=== PATIENT | male | born 1955 | race Caucasian/White ===

== ENCOUNTER 2016-09-04 16:37 | Observation (INO) | payer SELFPAY ==
[~2016-09-04] VITALS: Ht 185.4 cm; Wt 81.5 kg
[2016-09-04 16:39] VITALS: BP 130/93; PULSE 85; RESP 18; TEMP 98.2; O2SAT 99
--- NOTE | 2016-09-04 16:45 | PD ---
Physical Exam Date Seen by Provider: Sep 04, 2016 Time Seen by Provider: 16:43 Narrative 61 y/o male with c/o lower back pain and weakness which has been progressive over the last year. Has been seen by Orthopedics a year ago and MRI was recommended then, but patient had no insurance, so he did not get it. This am fell trying to get up off [employer], and broke it. V/S Stable. Awaiting bed placement. Data Data Last Documented VS Vital Signs Date Time Temp Pulse Resp B/P Pulse Ox O2 Delivery O2 Flow Rate FiO2 09/04/16 16:39 98.2 85 18 130/93 99 MDM Medical Record Reviewed: Yes Supervised Visit with CARRIE: Yes Condition: Stable Fernando Johnston Sep 04, 2016 16:45
[2016-09-04] MEDS ORDERED: SODIUM CHLOR 0.9% 1000 ML INJ 1,000 ML IV SCH (17:11)
[2016-09-04] MEDS ORDERED: SODIUM CHLORIDE 0.9% FLUSH 10 ML FLUSH IV FLUSH PRN ×2 (17:15→20:45)
--- NOTE | 2016-09-04 17:30 | PD ---
HPI Chief Complaint: Back/ Neck Pain or Injury Time Seen by Provider: 17:30 Travel History International Travel<30 days: No Contact w/Intl Traveler<30days: No Traveled to known affect area: No History of Present Illness HPI 61-year-old male presents to the emergency department for evaluation of lower extremity weakness worsening for 1 year. The patient states that in April 2015 he fell while at work carrying a box onto his bottom and had lower back pain at that time but was not seen or evaluated. States that 2 months later in June 2015 he was pulled down a ramp by a large package cart at work and injured his lower back. States that he was seen at a hospital in [place] at the time of that injury and had CT scans of his lower spine that were unremarkable. States he was referred to a specialist because he was experiencing slight weakness in his right foot so he followed up and was told he needed an MRI and a "neuromuscular test" however then he lost his insurance and never had these tests performed. States that over the past year since he saw that specialist he has had progressive weakness in his lower extremities. States that he used a cane for several months, then had to use 2 canes for another 3 months and then the last 3 months he has been using a walker for ambulation. States that today he was completely unable to lift himself off of the toilet at home due to weakness in his legs which is why he is presenting to our emergency department today, states his significant other had to carry him here. States that he waited to come to the hospital because he has been uninsured and did not want to get a large medical bill but he recently became insured. He denies any numbness or tingling, saddles anesthesia, fever, chills, nausea, vomiting. States that when he has the urge to urinate or have a bowel movement he has to go to the bathroom quickly or he will have an accident but denies bladder incontinence. He has also had swelling in his lower legs worsening over the last year as well. PFSH Past Medical History Medical History: Denies Significant Hx Social History Alcohol Use: No Tobacco Use: No Substance Use: No Allergies-Medications (Allergen,Severity, Reaction): Coded Allergies: No Known Allergies (Unverified , 09/04/16) Review of Systems Except as stated in HPI: all other systems reviewed are Neg Physical Exam Narrative GENERAL: Well-nourished and well-developed pleasant male patient in no acute distress who is nontoxic appearing. SKIN: Warm and dry. HEAD: Normocephalic and atraumatic. EYES: No injection, drainage, or hyphema noted. PERRLA. EOMI. ENT: No nasal drainage noted. Oropharynx is clear. NECK: Supple and the trachea is midline. CARDIOVASCULAR: Regular rate and rhythm. RESPIRATORY: Breath sounds are equal bilaterally with no accessory muscle use, wheezing, rhonchi, or crackles. GASTROINTESTINAL: Abdomen is soft, non-tender, and nondistended. MUSCULOSKELETAL: Swelling of calves, ankles and feet bilaterally with pitting edema. No obvious deformities, cyanosis, or ecchymosis is present throughout the upper and lower extremities. DP pulses are 2+ bilaterally. Strength in the upper extremities is 5/5 and equal bilaterally. Patient's lower extremities are flaccid, he is able to plantar flex at the ankle momentarily with strength of 3/5 bilaterally and when holding his thighs up with his arms he can flex at the knees a very small amount with a strength of 3/5. BACK: Nontender without any obvious deformities, bony point tenderness, or crepitus noted throughout the thoracic and lumbar vertebrae. NEUROLOGICAL: Awake, alert, and oriented. Normal speech. Inability to ambulate due to lower extremity weakness. DTRs 2+ in elbows and wrists bilaterally. DTRs in knees and Achilles are 0 bilaterally. Cranial nerves are grossly intact. Data Data Last Documented VS Vital Signs Date Time Temp Pulse Resp B/P Pulse Ox O2 Delivery O2 Flow Rate FiO2 09/04/16 20:16 56 15 09/04/16 20:14 175/90 98 Room Air 09/04/16 16:39 98.2 Orders Complete Blood Count With Diff (09/04/16 17:11) Comprehensive Metabolic Panel (09/04/16 17:11) Prothrombin Time / Inr (Pt) (09/04/16 17:11) Act Partial Throm Time (Ptt) (09/04/16 17:11) Iv Access Insert/Monitor (09/04/16 17:11) Ecg Monitoring (09/04/16 17:11) Oximetry (09/04/16 17:11) Sodium Chlor 0.9% 1000 Ml Inj (Ns 1000 M (09/04/16 17:11) Sodium Chloride 0.9% Flush (Ns Flush) (09/04/16 17:15) Mri C Spine W&W/O Contrast (09/04/16 ) Mri T Spine W & W/O Contrast (09/04/16 ) Mri Brain W&W/O Contrast (09/04/16 ) Us Leg Venous Doppler Bilat (09/04/16 ) Mri L Spine W&W/O Contrast (09/04/16 ) Gadodiamide Pf Inj (Omniscan Pf Inj) (09/04/16 19:12) Admit Order (Ed Use Only) (09/04/16 20:28) Labs Laboratory Tests Test 09/04/16 15:30 White Blood Count 5.7 TH/MM3 Red Blood Count 4.76 MIL/MM3 Hemoglobin 14.8 GM/DL Hematocrit 44.3 % Mean Corpuscular Volume 93.0 FL Mean Corpuscular Hemoglobin 31.1 PG Mean Corpuscular Hemoglobin 33.5 % Concent Red Cell Distribution Width 13.3 % Platelet Count 163 TH/MM3 Mean Platelet Volume 9.1 FL Neutrophils (%) (Auto) 67.7 % Lymphocytes (%) (Auto) 19.6 % Monocytes (%) (Auto) 9.3 % Eosinophils (%) (Auto) 3.0 % Basophils (%) (Auto) 0.4 % Neutrophils # (Auto) 3.9 TH/MM3 Lymphocytes # (Auto) 1.1 TH/MM3 Monocytes # (Auto) 0.5 TH/MM3 Eosinophils # (Auto) 0.2 TH/MM3 Basophils # (Auto) 0.0 TH/MM3 CBC Comment DIFF FINAL Differential Comment Prothrombin Time 10.3 SEC Prothromb Time International 0.9 RATIO Ratio Activated Partial 24.7 SEC Thromboplast Time Sodium Level 139 MEQ/L Potassium Level 3.8 MEQ/L Chloride Level 105 MEQ/L Carbon Dioxide Level 26.0 MEQ/L Anion Gap 8 MEQ/L Blood Urea Nitrogen 12 MG/DL Creatinine 0.67 MG/DL Estimat Glomerular Filtration 121 ML/MIN Rate Random Glucose 102 MG/DL Calcium Level 8.8 MG/DL Total Bilirubin 0.6 MG/DL Aspartate Amino Transf 26 U/L (AST/SGOT) Alanine Aminotransferase 34 U/L (ALT/SGPT) Alkaline Phosphatase 76 U/L Total Protein 6.7 GM/DL Albumin 3.8 GM/DL [facility] Medical Decision Making Medical Screen Exam Complete: Yes Emergency Medical Condition: Yes Differential Diagnosis Spinal cord injury versus spinal cord stenosis versus cauda equina versus MS versus Guillain-Parson syndrome versus other Narrative Course 61-year-old male presents to the emergency department for evaluation of lower extremity weakness worsening over the last year. Patient is afebrile, vital signs are stable. On physical examination the patient has flaccid paralysis of the lower extremities with the exception of small amount of plantar flexion at the ankles and minimal flexion at the knees when holding his legs up with his arms. Reflexes are absent in the lower extremities. Sensation is intact. Pulses and capillary refill are within normal limits. IV access is obtained, labs have been drawn and sent. I discussed the case with my attending physician Dr. Philip who recommends doing an MRIs of the patient's brain, cervical spine, thoracic spine and lumbar spine. Ultrasounds of the lower extremities have an order to rule out DVT. Brain MRI shows slight small vessel ischemic changes without any evidence for acute hemorrhage or mass effect. MRI of the cervical spine shows slight neural foramina compromise left C4 to 5 and left C5 to 6 without any significant thecal sac stenosis. MRI of the thoracic spine shows slight asymmetrical bulging disc left T9 to T 10 slightly impinging the exiting nerve roots without any significant thecal sac stenosis. MRI of the lumbar spine shows degenerative changes and slight bulging disks as above without any significant thecal sac stenosis. Bilateral lower extremities are negative for DVT. The patient's imaging is essentially unremarkable for anything that would cause bilateral lower extremity weakness. There is no clear etiology for the patient' s lower extremity weakness. The patient will be kept under observation for neurology and likely psychiatry consult as well. I discussed the case with my attending physician Dr. Philip who is aware of the patients history, physical examination findings, and treatment plan. Physician Communication Physician Communication I spoke with Dr. Heller [facility] who agrees to admit the patient to his service under observation. Diagnosis Primary Impression: Bilateral leg weakness Additional Impression: Inability to walk Admitting Information Admitting Physician Requests: Observation Condition: Stable Alayna Heller Sep 04, 2016 17:30
--- NOTE | 2016-09-04 17:47 | PD ---
Data Data Last Documented VS Vital Signs Date Time Temp Pulse Resp B/P Pulse Ox O2 Delivery O2 Flow Rate FiO2 09/04/16 20:16 56 15 09/04/16 20:14 175/90 98 Room Air 09/04/16 16:39 98.2 Orders Complete Blood Count With Diff (09/04/16 17:11) Comprehensive Metabolic Panel (09/04/16 17:11) Prothrombin Time / Inr (Pt) (09/04/16 17:11) Act Partial Throm Time (Ptt) (09/04/16 17:11) Iv Access Insert/Monitor (09/04/16 17:11) Ecg Monitoring (09/04/16 17:11) Oximetry (09/04/16 17:11) Sodium Chlor 0.9% 1000 Ml Inj (Ns 1000 M (09/04/16 17:11) Sodium Chloride 0.9% Flush (Ns Flush) (09/04/16 17:15) Mri C Spine W&W/O Contrast (09/04/16 ) Mri T Spine W & W/O Contrast (09/04/16 ) Mri Brain W&W/O Contrast (09/04/16 ) Us Leg Venous Doppler Bilat (09/04/16 ) Mri L Spine W&W/O Contrast (09/04/16 ) Gadodiamide Pf Inj (Omniscan Pf Inj) (09/04/16 19:12) Admit Order (Ed Use Only) (09/04/16 20:28) Labs Laboratory Tests Test 09/04/16 15:30 White Blood Count 5.7 TH/MM3 Red Blood Count 4.76 MIL/MM3 Hemoglobin 14.8 GM/DL Hematocrit 44.3 % Mean Corpuscular Volume 93.0 FL Mean Corpuscular Hemoglobin 31.1 PG Mean Corpuscular Hemoglobin 33.5 % Concent Red Cell Distribution Width 13.3 % Platelet Count 163 TH/MM3 Mean Platelet Volume 9.1 FL Neutrophils (%) (Auto) 67.7 % Lymphocytes (%) (Auto) 19.6 % Monocytes (%) (Auto) 9.3 % Eosinophils (%) (Auto) 3.0 % Basophils (%) (Auto) 0.4 % Neutrophils # (Auto) 3.9 TH/MM3 Lymphocytes # (Auto) 1.1 TH/MM3 Monocytes # (Auto) 0.5 TH/MM3 Eosinophils # (Auto) 0.2 TH/MM3 Basophils # (Auto) 0.0 TH/MM3 CBC Comment DIFF FINAL Differential Comment Prothrombin Time 10.3 SEC Prothromb Time International 0.9 RATIO Ratio Activated Partial 24.7 SEC Thromboplast Time Sodium Level 139 MEQ/L Potassium Level 3.8 MEQ/L Chloride Level 105 MEQ/L Carbon Dioxide Level 26.0 MEQ/L Anion Gap 8 MEQ/L Blood Urea Nitrogen 12 MG/DL Creatinine 0.67 MG/DL Estimat Glomerular Filtration 121 ML/MIN Rate Random Glucose 102 MG/DL Calcium Level 8.8 MG/DL Total Bilirubin 0.6 MG/DL Aspartate Amino Transf 26 U/L (AST/SGOT) Alanine Aminotransferase 34 U/L (ALT/SGPT) Alkaline Phosphatase 76 U/L Total Protein 6.7 GM/DL Albumin 3.8 GM/DL MDM Scripts No Active Prescriptions or Reported Meds Condition: Stable Srinivas Philip MD Sep 04, 2016 17:47
[2016-09-04 17:50] VITALS: BP 130/80; PULSE 80; RESP 16; O2SAT 98
[2016-09-04 17:51] LABS: AUTOMATED NEUTROPHIL # 3.9 TH/MM3 (1.8-7.7); BASOPHIL % 0.4 % (0.0-2.0); EOSINOPHIL # 0.2 TH/MM3 (0-0.4); HEMATOCRIT 44.3 % (39.0-51.0); HEMO FLAGS DIFF FINAL; LYMPH % 19.6 % (9.0-44.0); LYMPHOCYTE # 1.1 TH/MM3 (1.0-4.8); MEAN CORPUSCULAR HEMOGLOBIN 31.1 PG (27.0-34.0); MEAN CORPUSCULAR HGB CONC 33.5 % (32.0-36.0); MONO % 9.3 % (0.0-8.0); NEUT % 67.7 % (16.0-70.0); PLATELET COUNT 163 TH/MM3 (150-450); RED BLOOD COUNT 4.76 MIL/MM3 (4.50-5.90); RED CELL DISTRIBUTION WIDTH 13.3 % (11.6-17.2); WHITE BLOOD COUNT 5.7 TH/MM3 (4.0-11.0)
[2016-09-04 18:04] LABS: APTT (PATIENT) 24.7 SEC (24.3-30.1); INTERNATIONAL NORMALIZED RATIO 0.9 RATIO; PROTHROMBIN TIME - PATIENT 10.3 SEC (9.8-11.6)
[2016-09-04 18:28] LABS: ANION GAP 8 MEQ/L (5-15); AST (GOT) 26 U/L (15-37); BLOOD UREA NITROGEN 12 MG/DL (7-18); CHLORIDE 105 MEQ/L (98-107); GLOMERULAR FILTRATION RATE 121 ML/MIN (>89); POTASSIUM 3.8 MEQ/L (3.5-5.1); SODIUM (NA) 139 MEQ/L (136-145)
[2016-09-04 18:31] LABS: ALKALINE PHOSPHATASE 76 U/L (45-117); ALT (GPT) 34 U/L (12-78); TOTAL BILIRUBIN ADULT 0.6 MG/DL (0.2-1.0)
[2016-09-04] MEDS ORDERED: GADODIAMIDE PF 287 MG/ML 20 ML VIAL (for RAD MRI) IV ONE (19:12)
--- NOTE | 2016-09-04 19:28 | RADRPT ---
EXAM DATE/TIME: 09/04/2016 18:08 [facility] COMPARISON: No previous studies available for comparison. INDICATIONS : Inability to ambulate. CONTRAST: 20 cc Omniscan (gadodiamide) IV MEDICAL HISTORY : None. SURGICAL HISTORY : None. ENCOUNTER: Initial ACUITY: > 1 year PAIN SCORE: 0/10 LOCATION: Paraspinal TECHNIQUE: Multiplanar multisequence MRI of the thoracic spine was performed. FINDINGS: The marrow signal appears intact. No significant compression deformities are seen. No significant c ord compression is identified. The spinal cord appears intact. T1-T2: No appreciable compromise to the thecal sac, spinal cord, or the exiting nerve roots are seen. The neural foramina are grossly patent bilaterally. T2-T3: No appreciable compromise to the thecal sac, spinal cord, or the exiting nerve roots are seen. The neural foramina are grossly patent bilaterally. T3-T4: No appreciable compromise to the thecal sac, spinal cord, or the exiting nerve roots are seen. The neural foramina are grossly patent bilaterally. T4-T5: No appreciable compromise to the thecal sac, spinal cord, or the exiting nerve roots are seen. The neural foramina are grossly patent bilaterally. T5-T6: No appreciable compromise to the thecal sac, spinal cord, or the exiting nerve roots are seen. The neural foramina are grossly patent bilaterally. T6-T7: No appreciable compromise to the thecal sac, spinal cord, or the exiting nerve roots are seen. The neural foramina are grossly patent bilaterally. T7-T8: No appreciable compromise to the thecal sac, spinal cord, or the exiting nerve roots are seen. The neural foramina are grossly patent bilaterally. T8-T9: No appreciable compromise to the thecal sac, spinal cord, or the exiting nerve roots are seen. The neural foramina are grossly patent bilaterally. T9-T10: There is asymmetrical bulging disc towards the left with extension into the left neural fora men impinging the exiting nerve root to a slight degree. No significant thecal sac stenosis is seen. T10-T11: No appreciable compromise to the thecal sac, spinal cord, or the exiting nerve roots are se en. The neural foramina are grossly patent bilaterally. T11-T12: No appreciable compromise to the thecal sac, spinal cord, or the exiting nerve roots are se en. The neural foramina are grossly patent bilaterally. T12-L1: No appreciable compromise to the thecal sac, spinal cord, or the exiting nerve roots are s een. The neural foramina are grossly patent bilaterally. CONCLUSION: Slight asymmetrical buldging disc left T9-T10 slightly impinging the exiting nerve ro ots without any significant thecal sac stenosis. Uriel Brower MD on September 04, 2016 at 19:24 Board Certified Radiologist. This report was verified electronically.
--- NOTE | 2016-09-04 19:51 | RADRPT ---
EXAM DATE/TIME: 09/04/2016 18:08 [facility] COMPARISON: No previous studies available for comparison. INDICATIONS : Inability to ambulate. CONTRAST: 20 cc Omniscan (gadodiamide) IV MEDICAL HISTORY : None. SURGICAL HISTORY : None. ENCOUNTER: Initial ACUITY: > 1 year PAIN SCORE: 0/10 LOCATION: cranial TECHNIQUE: Multiplanar, multisequence MRI of the brain was performed both prior to and following the administrat ion of paramagnetic contrast. FINDINGS: There is no evidence for intracranial hemorrhage, mass effect, mass lesions, edema, or extra-axial fl uid collections. There are no signs of acute infarction for technique. The diffusion portion, and po stcontrast portion are unremarkable. Slight periventricular white matter changes are seen nonspecific mostly consistent with chronic small vessel ischemic changes. CONCLUSION: Slight small vessel ischemic changes without any evidence for acute hemorrhage or mass e ffect. K. Pan Brower MD on September 04, 2016 at 19:46 Board Certified Radiologist. This report was verified electronically.
--- NOTE | 2016-09-04 19:55 | RADRPT ---
EXAM DATE/TIME: 09/04/2016 18:08 [facility] COMPARISON: No previous studies available for comparison. INDICATIONS : Inability to ambulate. CONTRAST: 20 cc Omniscan (gadodiamide) IV MEDICAL HISTORY : None. SURGICAL HISTORY : None. ENCOUNTER: Initial ACUITY: > 1 year PAIN SCORE: 0/10 LOCATION: Paraspinal TECHNIQUE: Multiplanar, multisequence MRI examination of the cervical spine was performed. FINDINGS: POST-CONTRAST: No abnormal areas of enhancement are seen. C2-C3: There is no evidence for any significant compromise to the thecal sac, or the exiting nerve roots. N o appreciable thecal sac stenosis is seen. The neural foramina and lateral recess appear patent bila terally. C3-C4: There is no evidence for any significant compromise to the thecal sac, or the exiting nerve roots. N o appreciable thecal sac stenosis is seen. The neural foramina and lateral recess appear patent bila terally. C4-C5: Slight degenerative changes are seen within the disc space and facets. There is slight neural foramin a compromise on the left due to asymmetrical bulging disc and hypertrophic changes. There is effaceme nt of the anterior CSF space due to chronic hypertrophic changes, some degree of bulging disc with co mpromise to the anterior CSF space, however overall no significant thecal sac stenosis is seen. C5-C6: Slight degenerative changes are seen within the disc space and facets. Slight bulging disc and hypert rophic changes are seen with indentation on the thecal sac and no significant compromise to the theca l sac or the exiting nerve roots. C6-C7: Moderate degenerative changes are seen within the disc space and facets. There is slight neural linda betina compromise on the left due to asymmetrical bulging disc and hypertrophic changes. Slight bulging disc and hypertrophic changes are seen with indentation on the thecal sac and no significant compromi se to the thecal sac or the exiting nerve roots. C7-T1: There is no evidence for any significant compromise to the thecal sac, or the exiting nerve roots. N o appreciable thecal sac stenosis is seen. The neural foramina and lateral recess appear patent bila terally. CONCLUSION: Slight neural foramina compromise left C4-5 and left C5-6 without any significant thecal sac stenosis . Uriel Brower MD on September 04, 2016 at 19:49 Board Certified Radiologist. This report was verified electronically.
--- NOTE | 2016-09-04 19:59 | RADRPT ---
EXAM DATE/TIME: 09/04/2016 18:08 [facility] COMPARISON: No previous studies available for comparison. INDICATIONS : Inability to ambulate. CONTRAST: 20 cc Omniscan (gadodiamide) IV MEDICAL HISTORY : None. SURGICAL HISTORY : None. ENCOUNTER: Initial ACUITY: > 1 year PAIN SCORE: 0/10 LOCATION: Paraspinal TECHNIQUE: Multiplanar multisequence MRI of the lumbar spine was performed with and without contrast. FINDINGS: The most caudal appearing lumbar vertebra is numbered as L5. No significant compression deformities, spondylolysis or spondylolisthesis is seen. POST CONTRAST: No abnormal areas of contrast enhancement are seen. T12-L1: There is no evidence for any significant compromise to the thecal sac, or the exiting nerve roots. N o appreciable thecal sac stenosis is seen. The neural foramina and lateral recess appear patent bila terally. L1-L2: There is no evidence for any significant compromise to the thecal sac, or the exiting nerve roots. N o appreciable thecal sac stenosis is seen. The neural foramina and lateral recess appear patent bila terally. L2-L3: There is asymmetrical bulging disc towards the left with extension into the left neural foramen impin ging the exiting nerve root to a slight degree. No significant thecal sac stenosis is seen. L3-L4: There is asymmetrical bulging disc towards the left with extension into the left neural foramen impin ging the exiting nerve root to a slight degree. No significant thecal sac stenosis is seen. L4-L5: There is symmetrical bulging disc with extension into the bilateral neural foramen impinging the exit ing nerve roots to a slight degree. No significant thecal sac stenosis is seen. There are degenerati ve changes involving the inferior endplate of L4 with Schmorl node formation. L5-S1: There is no evidence for any significant compromise to the thecal sac, or the exiting nerve roots. N o appreciable thecal sac stenosis is seen. The neural foramina and lateral recess appear patent bila terally. CONCLUSION: Degenerative changes and slight bulging discs as above without any significant thecal sac stenosis. Uriel Brower MD on September 04, 2016 at 19:53 Board Certified Radiologist. This report was verified electronically.
[2016-09-04 20:14] VITALS: BP 175/90; PULSE 56; RESP 16; O2SAT 98
--- NOTE | 2016-09-04 20:22 | RADRPT ---
EXAM DATE/TIME: 09/04/2016 19:50 [facility] COMPARISON: No previous studies available for comparison. INDICATIONS : Bilateral leg swelling. MEDICAL HISTORY : Bilateral leg swelling. SURGICAL HISTORY : None. ENCOUNTER: Initial ACUITY: >1 year PAIN SCORE: 0/10 LOCATION: Bilateral leg. TECHNIQUE: Venous ultrasound of the left and right leg was performed from the inguinal ligament to the proximal calf. Real-time, color Doppler and spectral tracing, compression and augmentation techniques were us ed. FINDINGS: RIGHT LEG: There is normal compressibility of the deep venous system from the inguinal region to the proximal ca lf. No echogenic clot is seen in the lumen of the common femoral, femoral, popliteal, and posterior tibial veins. There is a normal response of the venous system to proximal and distal augmentation an d respiration. LEFT LEG: There is normal compressibility of the deep venous system from the inguinal region to the proximal ca lf. No echogenic clot is seen in the lumen of the common femoral, femoral, popliteal, and posterior tibial veins. There is a normal response of the venous system to proximal and distal augmentation an d respiration. CONCLUSION: Normal examination. Uriel Brower MD on September 04, 2016 at 20:20 Board Certified Radiologist. This report was verified electronically.
[2016-09-04] MEDS ORDERED: NALOXONE HCL 0.4 MG/ML AMP IV PRN (20:45)
[2016-09-04] MEDS ORDERED: ACETAMINOPHEN 325 MG TAB PO PRN (20:45)
[2016-09-04] MEDS ORDERED: ONDANSETRON HCL 4 MG/2 ML VIAL IVP PRN (20:45)
--- NOTE | 2016-09-04 21:18 | HHI.HP ---
[facility] Service [facility] Primary Care Physician No Primary Care Physician Admission Diagnosis Bilateral Lower Extremity Weakness, Inability to Ambulate Diagnoses: Chief Complaint: Progressive bilateral lower extremity weakness Travel History International Travel<30 Days: No Contact w/Intl Traveler <30 Da: No Traveled to Known Affected Are: No History of Present Illness This is a 61-year-old male patient who denies neck and medical history. Patient presents to the emergency department today after he fell backwards shortness it on a bedside commode. Patient reports progressive bilateral lower extremity weakness times one year. The patient states that in April 2015 he fell while at work carrying a box onto his bottom and had lower back pain at that time but was not seen or evaluated. States that 2 months later in June 2015 he was pulled down a ramp by a large package cart at work and injured his lower back. States that he was seen at a hospital in [place] at the time of that injury and had CT scans of his lower spine that were unremarkable. States he was referred to a specialist and was told he needed an MRI and a "neuromuscular test" however then he lost his insurance and never had these tests performed. States that over the past year he has had progressive weakness in his lower extremities. States that he used a cane for several months, then had to use 2 canes for another 3 months and then the last 3 months he has been using a walker for ambulation. States that today he was completely unable to lift himself off of the toilet at home due to weakness in his legs which is why he is presenting to our emergency department today, states his significant other had to carry him here. States that he waited to come to the hospital because he has been uninsured and did not want to get a large medical bill but he recently became insured. He denies any numbness or tingling, saddles anesthesia, fever, chills, nausea, vomiting. States that when he has the urge to urinate or have a bowel movement he has to go to the bathroom quickly or he will have an accident but denies bladder or stool incontinence. He has also had swelling in his lower legs for the last year as well. Review of Systems Except as stated in HPI: all other systems reviewed are Neg Past Family Social History Past Medical History Denies past medical history Past Surgical History Denies prior surgical interventions Reported Medications Denies daily home medications. Reports he will occasionally take over-the- counter ibuprofen Allergies: Coded Allergies: No Known Allergies (Unverified , 09/04/16) Active Ordered Medications Current Medications Medications (Trade) Dose Ordered Sig/Mane Route Start Time Stop Time Status Last Admin (NS Flush) 2 ml UNSCH PRN IV FLUSH 09/04/16 20:45 (NS Flush) 2 ml BID IV FLUSH 09/04/16 21:00 (Tylenol) 650 mg Q4H PRN PO 09/04/16 20:45 (Zofran Inj) 4 mg Q6H PRN IVP 09/04/16 20:45 (Lovenox Inj) 40 mg Q24H SQ 09/04/16 21:00 (Narcan Inj) 0.4 mg UNSCH PRN IV 09/04/16 20:45 Family History Mother at 71 believes is secondary to CVA Father at 73 unknown causes Social History Patient is currently not working he has not worked since June 2015 Rare EtOH use Denies tobacco use now or in the past Denies illicit drug use now or in the past Physical Exam Vital Signs Vital Signs Date Time Temp Pulse Resp B/P Pulse Ox O2 Delivery O2 Flow Rate FiO2 09/04/16 20:16 56 15 09/04/16 20:14 56 16 175/90 98 Room Air 09/04/16 17:50 80 16 130/80 98 Room Air 09/04/16 16:39 98.2 85 18 130/93 99 Physical Exam GENERAL: This is a well-nourished, well-developed patient, with bilateral lower extremity weakness muscle wasting and 3+ pitting edema SKIN: No rashes, ecchymoses or lesions. Cool and dry. HEAD: Atraumatic. Normocephalic. No temporal or scalp tenderness. EYES: Extraocular motions intact. No scleral icterus. No injection or drainage. CARDIOVASCULAR: Regular rate and rhythm without murmurs, gallops, or rubs. RESPIRATORY: Clear to auscultation. Breath sounds equal bilaterally. No wheezes , rales, or rhonchi. GASTROINTESTINAL: Abdomen soft, non-tender, nondistended. BACK: Nontender without any obvious deformities, bony point tenderness, or crepitus noted throughout the thoracic and lumbar vertebrae. MUSCULOSKELETAL: Bilateral lower extremity muscle wasting with 3+ bilateral lower extremity pitting edema No calf tenderness. Negative Homans sign bilaterally. Strength in the upper extremities is 5/5 and equal bilaterally. Patient's lower extremities are flaccid, he is able to plantar flex at the ankle momentarily with strength of 3/5 bilaterally NEUROLOGICAL: Awake and alert. Normal speech. Bilateral lower extremity weakness. Inability to ambulate due to lower extremity weakness. DTRs 2+ in elbows and wrists bilaterally. DTRs in knees and Achilles are 0 bilaterally. Cranial nerves are grossly intact. Laboratory Laboratory Tests Test 09/04/16 15:30 White Blood Count 5.7 Red Blood Count 4.76 Hemoglobin 14.8 Hematocrit 44.3 Mean Corpuscular Volume 93.0 Mean Corpuscular Hemoglobin 31.1 Mean Corpuscular Hemoglobin 33.5 Concent Red Cell Distribution Width 13.3 Platelet Count 163 Mean Platelet Volume 9.1 Neutrophils (%) (Auto) 67.7 Lymphocytes (%) (Auto) 19.6 Monocytes (%) (Auto) 9.3 Eosinophils (%) (Auto) 3.0 Basophils (%) (Auto) 0.4 Neutrophils # (Auto) 3.9 Lymphocytes # (Auto) 1.1 Monocytes # (Auto) 0.5 Eosinophils # (Auto) 0.2 Basophils # (Auto) 0.0 CBC Comment DIFF FINAL Differential Comment Prothrombin Time 10.3 Prothromb Time International 0.9 Ratio Activated Partial 24.7 Thromboplast Time Sodium Level 139 Potassium Level 3.8 Chloride Level 105 Carbon Dioxide Level 26.0 Anion Gap 8 Blood Urea Nitrogen 12 Creatinine 0.67 Estimat Glomerular Filtration 121 Rate Random Glucose 102 Calcium Level 8.8 Total Bilirubin 0.6 Aspartate Amino Transf 26 (AST/SGOT) Alanine Aminotransferase 34 (ALT/SGPT) Alkaline Phosphatase 76 Total Protein 6.7 Albumin 3.8 Result Diagram: 09/04/16 1530 09/04/16 1530 Imaging Last Impressions Thoracic Spine MRI 09/04/16 0000 Signed Impressions: Service Date/Time: Sunday, September 04, 2016 18:08 - CONCLUSION: Slight asymmetrical buldging disc left T9-T10 slightly impinging the exiting nerve roots without any significant thecal sac stenosis. Uriel Brower MD Lumbar Spine MRI 09/04/16 0000 Signed Impressions: Service Date/Time: Sunday, September 04, 2016 18:08 - CONCLUSION: Degenerative changes and slight bulging discs as above without any significant thecal sac stenosis. Uriel Brower MD Lower Extremity Ultrasound 09/04/16 0000 Signed Impressions: Service Date/Time: Sunday, September 04, 2016 19:50 - CONCLUSION: Normal examination. Uriel Brower MD Cervical Spine MRI 09/04/16 0000 Signed Impressions: Service Date/Time: Sunday, September 04, 2016 18:08 - CONCLUSION: Slight neural foramina compromise left C4-5 and left C5-6 without any significant thecal sac stenosis. Uriel Brower MD Brain MRI 09/04/16 0000 Signed Impressions: Service Date/Time: Sunday, September 04, 2016 18:08 - CONCLUSION: Slight small vessel ischemic changes without any evidence for acute hemorrhage or mass effect. Uriel Brower MD Assessment and Plan Problem List: (1) Inability to walk ICD Code: R26.2 Status: Acute (2) Bilateral leg weakness ICD Code: R29.898 Status: Acute Assessment and Plan This is a 61-year-old male patient who denies neck and medical history. Patient presents to the emergency department today after he fell backwards shortness it on a bedside commode. Patient reports progressive bilateral lower extremity weakness times one year. Progressive bilateral lower extremity weakness times one year Bilateral lower extremity edema Bilateral lower extremity muscle wasting Brain MRI shows slight small vessel ischemic changes without any evidence for acute hemorrhage or mass effect. MRI of the cervical spine shows slight neural foramina compromise left C4 to 5 and left C5 to 6 without any significant thecal sac stenosis. MRI of the thoracic spine shows slight asymmetrical bulging disc left T9 to T 10 slightly impinging the exiting nerve roots without any significant thecal sac stenosis. MRI of the lumbar spine shows degenerative changes and slight bulging disks as above without any significant thecal sac stenosis. Bilateral lower extremities are negative for DVT Consult neurology Consult PT and OT DVT prophylaxis with Lovenox Discussed plan of care with here provider, nursing patient and Dr. Heller This note was transcribed by [email or web address] [Nina Pelayo]. I, Dr. Juan Heller personally performed the history, physical exam, and medical decision making; and confirmed the accuracy of the information in the transcribed note. Authenticated by Dr. Juan Heller on 09/05/16 at 00:12. Su Pelayo Sep 04, 2016 21:18 Juan Heller MD September 05, 2016 00:13
[2016-09-04] MEDS: SODIUM CHLORIDE 0.9% FLUSH 10 ML FLUSH IV FLUSH SCH (21:39)
[2016-09-04] MEDS: ENOXAPARIN SODIUM 40 MG/0.4 ML SYRINGE SQ SCH (21:39)
[2016-09-04 22:37] VITALS: BP 147/78; PULSE 68; RESP 18; TEMP 98.4; O2SAT 97
[2016-09-05 00:34] VITALS: BP 189/95; PULSE 61; RESP 18; TEMP 98.8; O2SAT 97
[2016-09-05 04:46] VITALS: BP 131/75; PULSE 78; RESP 21; TEMP 98; O2SAT 99
[2016-09-05 07:29] VITALS: BP 139/96; PULSE 60; RESP 19; TEMP 97.9; O2SAT 98
[2016-09-05 08:41] LABS: AUTOMATED NEUTROPHIL # 1.7 TH/MM3 (1.8-7.7); BASOPHIL % 0.8 % (0.0-2.0); EOSINOPHIL # 0.2 TH/MM3 (0-0.4); EOSINOPHIL % 4.6 % (0.0-4.0); HEMATOCRIT 39.2 % (39.0-51.0); HEMO FLAGS DIFF FINAL; LYMPH % 30.4 % (9.0-44.0); MEAN CELL VOLUME 91.4 FL (80.0-100.0); MEAN CORPUSCULAR HEMOGLOBIN 32.3 PG (27.0-34.0); MEAN CORPUSCULAR HGB CONC 35.3 % (32.0-36.0); MONO % 11.2 % (0.0-8.0); PLATELET COUNT 137 TH/MM3 (150-450); RED BLOOD COUNT 4.28 MIL/MM3 (4.50-5.90); RED CELL DISTRIBUTION WIDTH 13.2 % (11.6-17.2); WHITE BLOOD COUNT 3.3 TH/MM3 (4.0-11.0)
[2016-09-05 08:58] LABS: BICARBONATE 25.8 MEQ/L (21.0-32.0); POTASSIUM 3.4 MEQ/L (3.5-5.1)
--- NOTE | 2016-09-05 11:09 | MB ---
cc: ELICEO YOUNG MD DATE OF CONSULTATION: 09/05/2016 REASON FOR CONSULTATION Bilateral lower extremity weakness of 1-1/2 years duration. HISTORY OF PRESENT ILLNESS Mr. Denny is a 61-year-old male with no significant past medical history who presents to the emergency department at [facility] after multiple falls and weakness of both lower extremities that started in April 2015. 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 At that time he was not seen or evaluated. Then two months later in June 2015 he was pulled down around by a large package cart at work and injured his lower back. He was seen in the hospital in [place] and imaging was unremarkable. Then he was referred to a neurologist and he was told that he needed an MRI and neurophysiologic tests but he had lost his insurance and never had these tests performed. The patient has been using a cane for several months. The patient states that both legs were weak from the beginning and he thinks that there was loss of muscle bulk and decrease in the tone of both legs over the last six months, but he emphasizes that the weakness has been there since the beginning. He denies any sphincter control disturbances, significant back pain, numbness or tingling sensation. REVIEW OF SYSTEMS A 12-point review of systems is negative except for what is stated in the HPI. PAST MEDICAL HISTORY Nonapplicable. PAST SURGICAL HISTORY Nonapplicable. MEDICATIONS He occasionally uses [id number] ibuprofen. ALLERGIES No known allergies. FAMILY HISTORY Mother at 71 due to a stroke. Father at 73 of unknown causes. SOCIAL HISTORY The patient rarely uses ethanol, denies tobacco use or illicit drug use. PHYSICAL EXAMINATION GENERAL: Awake, alert, pleasant, good historian, not in acute distress HEENT: Atraumatic, normocephalic. Intact hearing. Intact vision. HEART: Regular rate and rhythm. LUNGS: Clear to auscultation. No wheezes. ABDOMEN: Soft abdomen, nontender. EXTREMITIES: Bilateral ankle swelling. No cyanosis. No clubbing. BACK: No tenderness in the back. NEUROLOGIC: Awake, alert, oriented to time, person and place. Intact speech. Intact speech content. Cranial nerves II-XII are grossly intact. Upper extremities 5/5. No abnormal movement. Normal tone. Lower extremity hip flexion 4-/5 bilateral. Hip extension 4/5 bilateral. Knee extension 4-/5 right, 4/5 left. Bilateral foot drop. Plantar flexion 3/5 bilateral with swelling. Reflexes 2+ bilateral symmetrical in upper extremities, 2+ bilateral symmetrical in lower extremities. Plantars are bilaterally downgoing. Sensation is intact. No sensory level. Negative Willie sign. Negative abductor reflexes. Wasting of bilateral thigh muscles, abductors and vastus lateralis. Intact [id number]. Unable to perform [id number]. LABORATORY White blood cell count 5.7, MCV 93, platelet 163. INR 0.9. Sodium 139, potassium 3.8, anion gap 8, BUN 12, creatinine 0.67, calcium 8.8. LFTs normal. IMAGING - Brain MRI with slight small vessel ischemic changes without any evidence of acute hemorrhage or mass. - Cervical spine MRI with slight neural foramina compromise at left C4-5 and left C5-6 without any significant thecal sac stenosis. - Lumbar spine MRI with degenerative changes and slight bulging disc without any significant thecal stenosis. - Thoracic spine MRI with slight asymmetric bulging at left T9-T10 impinging on the existing nerve root without any significant thecal sac stenosis. - Lower extremity ultrasound: Normal examination. DIAGNOSTIC IMPRESSION 1. Bilateral lower extremity weakness. 2. Bilateral foot drop. 3. Multiple falls. Possible etiologic factors, inflammatory[demyelination],vascular [anterior spinal artery], infectious [syphilis,HTLV1,HIV, HSV 1, HSV2, HIV], or ? trauma. PLAN - Neuro-checks q.4 hourly. - Consider LP - CTA thoracic and lumbar spine w contrast - PT/ OT recommendations are appreciated. - DVT prophylaxis. - Fall precautions Thank you for the opportunity to participate in the care of your patient. MD GISSEL Barker/SELENA /9:56 AM /10:56 AM ARVIN
[2016-09-05 11:48] VITALS: BP 177/92; PULSE 65; RESP 20; TEMP 98.2; O2SAT 97
--- NOTE | 2016-09-05 12:50 | HHI.PR ---
Subjective Remarks Feeling at baseline, which is to say he is not improved. Further work up planned. No new complaints. Objective Vital Signs Date Time Temp Pulse Resp B/P Pulse Ox O2 Delivery O2 Flow Rate FiO2 09/05/16 11:48 98.2 65 20 177/92 97 09/05/16 07:29 97.9 60 19 139/96 98 09/05/16 04:46 98.0 78 21 131/75 99 09/05/16 00:34 98.8 61 18 189/95 97 09/04/16 22:37 98.4 68 18 147/78 97 09/04/16 20:16 56 15 09/04/16 20:14 56 16 175/90 98 Room Air 09/04/16 17:50 80 16 130/80 98 Room Air 09/04/16 16:39 98.2 85 18 130/93 99 I/O 09/04/16 09/04/16 09/04/16 09/05/16 09/05/16 09/05/16 07:00 15:00 23:00 07:00 15:00 23:00 Output Total 400 ml Balance -400 ml Output Urine Total 400 ml # Voids 2 Result Diagram: 09/05/16 0800 09/05/16 0800 Imaging Last Impressions Thoracic Spine MRI 09/04/16 0000 Signed Impressions: Service Date/Time: Sunday, September 04, 2016 18:08 - CONCLUSION: Slight asymmetrical buldging disc left T9-T10 slightly impinging the exiting nerve roots without any significant thecal sac stenosis. Uriel Brower MD Lumbar Spine MRI 09/04/16 0000 Signed Impressions: Service Date/Time: Sunday, September 04, 2016 18:08 - CONCLUSION: Degenerative changes and slight bulging discs as above without any significant thecal sac stenosis. Uriel Brower MD Lower Extremity Ultrasound 09/04/16 0000 Signed Impressions: Service Date/Time: Sunday, September 04, 2016 19:50 - CONCLUSION: Normal examination. Uriel Brower MD Cervical Spine MRI 09/04/16 0000 Signed Impressions: Service Date/Time: Sunday, September 04, 2016 18:08 - CONCLUSION: Slight neural foramina compromise left C4-5 and left C5-6 without any significant thecal sac stenosis. Uriel Brower MD Brain MRI 09/04/16 0000 Signed Impressions: Service Date/Time: Sunday, September 04, 2016 18:08 - CONCLUSION: Slight small vessel ischemic changes without any evidence for acute hemorrhage or mass effect. Uriel Brower MD Objective Remarks GENERAL: NAD, A&Ox3 SKIN: Warm and dry. HEAD: Normocephalic. EYES: No scleral icterus. No injection or drainage. NECK: Supple, trachea midline. No JVD or lymphadenopathy. CARDIOVASCULAR: Regular rate and rhythm without murmurs, gallops, or rubs. RESPIRATORY: Breath sounds equal bilaterally. No accessory muscle use. GASTROINTESTINAL: Abdomen soft, non-tender, nondistended. MUSCULOSKELETAL: No cyanosis, or edema. BACK: Nontender without obvious deformity. No CVA tenderness. NEURO: Lower extremities have near flaccidity of motor function. He has plantarflexion intact. Medications and IVs Administered Medications Medications (Trade) Dose Ordered Sig/Mane Route PRN Reason Start Time Stop Time Status Last Admin Dose Admin Sodium Chloride (NS Flush) 2 ml BID IV FLUSH 09/04/16 21:00 09/04/16 21:39 Enoxaparin Sodium (Lovenox Inj) 40 mg Q24H SQ 09/04/16 21:00 09/04/16 21:39 A/P Problem List: (1) Inability to walk ICD Code: R26.2 (2) Bilateral leg weakness ICD Code: R29.898 Assessment and Plan Mr. Denny is a 61 year old male with bilateral leg weakness and inability to walk. Bilateral Leg Weakness/Edema/Muscle Wasting Possible old injury Neurology following Further work up ongoing PT Juan Heller MD September 05, 2016 12:50 pm
[2016-09-05 15:54] VITALS: BP 165/94; PULSE 58; RESP 23; TEMP 98; O2SAT 97
[2016-09-05 19:26] VITALS: BP 162/86; PULSE 62; RESP 22; TEMP 98.4; O2SAT 96
[2016-09-05] MEDS: ENOXAPARIN SODIUM 40 MG/0.4 ML SYRINGE SQ SCH (21:39)
[2016-09-05] MEDS: SODIUM CHLORIDE 0.9% FLUSH 10 ML FLUSH IV FLUSH SCH (21:39)
[2016-09-06 00:36] VITALS: BP 168/85; PULSE 78; RESP 18; TEMP 98.7; O2SAT 100
[2016-09-06 04:35] VITALS: BP 152/81; PULSE 64; RESP 18; TEMP 98.7; O2SAT 97
[2016-09-06 07:33] VITALS: BP 141/84; PULSE 75; RESP 22; TEMP 97.9; O2SAT 95
[2016-09-06] MEDS: SODIUM CHLORIDE 0.9% FLUSH 10 ML FLUSH IV FLUSH SCH ×2 (09:00→22:06)
[2016-09-06 11:30] VITALS: BP 147/84; PULSE 78; RESP 20; TEMP 97.9; O2SAT 95
[2016-09-06 15:43] VITALS: BP 146/94; PULSE 71; RESP 23; TEMP 98; O2SAT 95
--- NOTE | 2016-09-06 16:59 | HHI.PR ---
Review/Management Diagnosis 1. Bilateral chronic lower extremity weakness. 2. Bilateral chronic foot drop. 3. Multiple falls. Possible etiologic factors, inflammatory[demyelination],vascular [anterior spinal artery], infectious [syphilis,HTLV1,HIV, HSV 1, HSV2, HIV], or ? trauma. Plan - Neuro-checks q.4 hourly. - Lumbar puncture - MRA thoracic and lumbar spine w contrast - PT/ OT recommendations are appreciated. - DVT prophylaxis. - Fall precautions - EMG&NCS, at outpatient neurology Diagnosis/Plan: Subjective Subjective Comments No acute events reported No new complaints at bed side Patients is eager to go home I explained to him the other required tests, he aggress to do the LP and MRA of the spine inpatient , and follow up outpatient for EMG&NCS Active Medications Current Medications Medications (Trade) Dose Ordered Sig/Mane Route Start Time Stop Time Status Last Admin (NS Flush) 2 ml UNSCH PRN IV FLUSH 09/04/16 20:45 (NS Flush) 2 ml BID IV FLUSH 09/04/16 21:00 09/06/16 09:00 (Tylenol) 650 mg Q4H PRN PO 09/04/16 20:45 (Zofran Inj) 4 mg Q6H PRN IVP 09/04/16 20:45 (Lovenox Inj) 40 mg Q24H SQ 09/04/16 21:00 09/05/16 21:39 (Narcan Inj) 0.4 mg UNSCH PRN IV 09/04/16 20:45 Allergies Allergies Coded Allergies No Known Allergies (Unverified09/04/16) Exam I&O / VS 09/05/16 09/05/16 09/06/16 15:00 23:00 07:00 Intake Total 1410 ml Balance 1410 ml Intake Oral 1410 ml # Voids 6 # Bowel Movements 0 Vital Signs Date Time Temp Pulse Resp B/P Pulse Ox O2 Delivery O2 Flow Rate FiO2 09/06/16 15:43 98.0 71 23 146/94 95 09/06/16 11:30 97.9 78 20 147/84 95 09/06/16 07:33 97.9 75 22 141/84 95 09/06/16 04:35 98.7 64 18 152/81 97 09/06/16 00:36 98.7 78 18 168/85 100 09/05/16 19:26 98.4 62 22 162/86 96 Exam Comments GENERAL: Awake, alert, pleasant, not in acute distress HEENT: Atraumatic, normocephalic. Intact hearing. Intact vision. HEART: Regular rate and rhythm. LUNGS: Clear to auscultation. No wheezes. ABDOMEN: Soft abdomen, nontender. EXTREMITIES: Bilateral ankle swelling. No cyanosis. No clubbing. BACK: No tenderness in the back. NEUROLOGIC: Awake, alert, oriented to time, person and place. Intact speech. Intact speech content. Cranial nerves II-XII are grossly intact. Upper extremities 5/5. No abnormal movement. Normal tone. Lower extremity hip flexion 4-/5 bilateral. Hip extension 4/5 bilateral. Knee extension 4-/5 right, 4/5 left. Bilateral foot drop. Plantar flexion 3/5 bilateral with swelling. Reflexes 2+ bilateral symmetrical in upper extremities, 2+ bilateral symmetrical in lower extremities. Plantars are bilaterally downgoing. Sensation is intact. No sensory level. Negative Willie sign. Negative crossed adductor reflexes. Wasting of bilateral thigh muscles, abductors and vastus lateralis. Intact [id number]. Unable to perform [id number]. Objective Radiology Results Last 72 hours Impressions Thoracic Spine MRI 09/04/16 0000 Signed Impressions: Service Date/Time: Sunday, September 04, 2016 18:08 - CONCLUSION: Slight asymmetrical buldging disc left T9-T10 slightly impinging the exiting nerve roots without any significant thecal sac stenosis. Uriel Brower MD Lumbar Spine MRI 09/04/16 0000 Signed Impressions: Service Date/Time: Sunday, September 04, 2016 18:08 - CONCLUSION: Degenerative changes and slight bulging discs as above without any significant thecal sac stenosis. Uriel Brower MD Lower Extremity Ultrasound 09/04/16 0000 Signed Impressions: Service Date/Time: Sunday, September 04, 2016 19:50 - CONCLUSION: Normal examination. Uriel Brower MD Cervical Spine MRI 09/04/16 0000 Signed Impressions: Service Date/Time: Sunday, September 04, 2016 18:08 - CONCLUSION: Slight neural foramina compromise left C4-5 and left C5-6 without any significant thecal sac stenosis. Uriel Brower MD Brain MRI 09/04/16 0000 Signed Impressions: Service Date/Time: Sunday, September 04, 2016 18:08 - CONCLUSION: Slight small vessel ischemic changes without any evidence for acute hemorrhage or mass effect. MD Maral Gibson Raid G. MD September 06, 2016 16:59
--- NOTE | 2016-09-06 19:25 | HHI.PR ---
Subjective Remarks No new complaints. He is hoping to return home soon. I encouraged him to stay to completion of his work up. Objective Vital Signs Date Time Temp Pulse Resp B/P Pulse Ox O2 Delivery O2 Flow Rate FiO2 09/06/16 15:43 98.0 71 23 146/94 95 09/06/16 11:30 97.9 78 20 147/84 95 09/06/16 07:33 97.9 75 22 141/84 95 09/06/16 04:35 98.7 64 18 152/81 97 09/06/16 00:36 98.7 78 18 168/85 100 09/05/16 19:26 98.4 62 22 162/86 96 I/O 09/05/16 09/05/16 09/05/16 09/06/16 09/06/16 09/06/16 07:00 15:00 23:00 07:00 15:00 23:00 Intake Total 1410 ml 480 ml 720 ml Output Total 600 ml Balance 1410 ml 480 ml 120 ml Intake Oral 1410 ml 480 ml 720 ml Output Urine Total 600 ml # Voids 6 1 # Bowel Movements 0 1 Result Diagram: 09/05/16 0800 09/05/16 0800 Objective Remarks GENERAL: NAD, A&Ox3 SKIN: Warm and dry. HEAD: Normocephalic. EYES: No scleral icterus. No injection or drainage. NECK: Supple, trachea midline. No JVD or lymphadenopathy. CARDIOVASCULAR: Regular rate and rhythm without murmurs, gallops, or rubs. RESPIRATORY: Breath sounds equal bilaterally. No accessory muscle use. GASTROINTESTINAL: Abdomen soft, non-tender, nondistended. MUSCULOSKELETAL: No cyanosis, or edema. BACK: Nontender without obvious deformity. No CVA tenderness. NEURO: Lower extremities have near flaccidity of motor function. He has plantarflexion intact. A/P Problem List: (1) Inability to walk ICD Code: R26.2 (2) Bilateral leg weakness ICD Code: R29.898 Assessment and Plan Mr. Denny is a 61 year old male with bilateral leg weakness and inability to walk. Bilateral Leg Weakness/Edema/Muscle Wasting Possible old injury Neurology following Work up ongoing PT At discharge he would benefit from a walker, PT and a device for his foot drop. Juan Heller MD September 06, 2016 19:25
[2016-09-06 19:33] LABS: PROTHROMBIN TIME - PATIENT 10.6 SEC (9.8-11.6)
[2016-09-06 20:34] VITALS: BP 166/88; PULSE 74; RESP 18; O2SAT 97
[2016-09-06] MEDS: ENOXAPARIN SODIUM 40 MG/0.4 ML SYRINGE SQ SCH (22:07)
[2016-09-07 04:40] VITALS: BP 132/78; PULSE 71; RESP 18; TEMP 97.7; O2SAT 97
[2016-09-07 07:06] VITALS: BP 170/111; PULSE 61; RESP 16; TEMP 97.6; O2SAT 98
[2016-09-07] MEDS: SODIUM CHLORIDE 0.9% FLUSH 10 ML FLUSH IV FLUSH SCH (09:00)
[2016-09-07] MEDS ORDERED: GADODIAMIDE PF 287 MG/ML 10 ML VIAL (for RAD MRI) IV ONE (10:47)
[2016-09-07 11:38] VITALS: BP 153/93; PULSE 90; RESP 16; TEMP 98; O2SAT 97
--- NOTE | 2016-09-07 13:08 | RADRPT ---
EXAM DATE/TIME: 09/07/2016 09:17 [facility] COMPARISON: MRA ABDOMEN W CONTRAST, September 07, 2016, 9:17. INDICATIONS : Lower extremity weakness. Muscle wasting. MRA of thoracic spinal arteries. CONTRAST: 30 cc Omniscan (gadodiamide) IV MEDICAL HISTORY : None. SURGICAL HISTORY : None. ENCOUNTER: Subsequent ACUITY: 2 weeks PAIN SCORE: 0/10 LOCATION: chest TECHNIQUE: Bolus infused MR angiography was performed yielding 3D reconstructed images of the chest. FINDINGS: THORACIC AORTA: Normal in caliber and course. No ulcerations. Intercostal arteries are observed. Very limited visuali zation of the spinal arteries which is felt to be technical in nature. Short intermittent segments of the anterior spinal artery are discernible. OTHER STRUCTURES: Pulmonary outflow tract is normal in caliber. The heart is normal in size. CONCLUSION: 1. Aorta is normal in caliber and course.. Limited evaluation of the spinal arteries. Consideration c ould be made to CTA which is less sensitive to motion artifact. Isaias Torres Jr., MD on September 07, 2016 at 12:23 Board Certified Radiologist. This report was verified electronically.
--- NOTE | 2016-09-07 13:11 | RADRPT ---
EXAM DATE/TIME: 09/07/2016 09:17 [facility] COMPARISON: No previous studies available for comparison. INDICATIONS : Lower extremity weakness. Muscle wasting. Lumbar spinal arteries. CONTRAST: 30 cc Omniscan (gadodiamide) IV MEDICAL HISTORY : None. SURGICAL HISTORY : None. ENCOUNTER: Subsequent ACUITY: 2 weeks PAIN SCORE: 0/10 LOCATION: abdomen TECHNIQUE: Bolus infused MR angiography was performed. The data was postprocessed with a variety of visualizati on algorithms including full-volume maximum-intensity projection, multiplanar sliding thin slab refor mation, and curved planar reformation. FINDINGS: AORTA/INFLOW: Aorta is normal in caliber and course. Visualized portions the inflow vessels are patent. Atheroscler otic plaque generates mild narrowing of the SMA. The celiac and KIRBY are patent. Renal arteries are pa tent. Intercostal arteries are patent. Very limited evaluation of the spinal arteries. Intermittent s egments of the anterior spinal artery are seen. OTHER STRUCTURES: Limited visualization of a visceral structures are unremarkable. CONCLUSION: Atherosclerotic plaque generat mild luminal narrowing of the SMA. Remaining mesenteric arteries are p atent. Very limited evaluation of the spinal arteries. CTA could be considered which is less sensitiv e to motion artifact. Isaias Torres Jr., MD on September 07, 2016 at 13:06 Board Certified Radiologist. This report was verified electronically.
--- NOTE | 2016-09-07 15:15 | PD.RAD ---
Post Procedure Progress Note Pre Procedure Diagnosis: (1) Bilateral leg weakness (2) Inability to walk Post Procedure Diagnosis: (1) Bilateral leg weakness (2) Inability to walk Procedure Date: September 07, 2016 Supervising Radiologist: Juan Henry Anesthesia: Local Plan of Activity Patient to Unit: Nursing Unit Patient Condition: Good Additional Comments: LP completed without difficulty Opening pressure 12 20CC of clear csf obtained See PACS Report for procedural detail/treatment Juan Henry MD September 07, 2016 15:15
[2016-09-07 15:30] VITALS: BP 144/75; PULSE 65; RESP 18; TEMP 97.3; O2SAT 97
--- NOTE | 2016-09-07 15:33 | RADRPT ---
EXAM DATE/TIME: 09/07/2016 14:56 [facility] COMPARISON: No previous studies available for comparison. INDICATIONS : Patient with history of lower extremity weakness in need of lumbar puncture. MEDICAL HISTORY : 1.Bilateral lower extremity weakness 2.Recent fall SURGICAL HISTORY : None. ENCOUNTER: Initial ACUITY: > 1 year PAIN SCORE: 0/10 LUMBAR PUNCTURE TIME: 1458 hours FLUORO TIME: 1.16 minutes IMAGE SERIES: ACCESS LEVEL: L4-5 FLUID: 20 cc of clear CSF was collected and sent to the laboratory for analysis. TECH NOTE; Opening pressure of 12 cm of H2O.FLAKO THAKKAR MR#[id number] : 57 Exam date/desc:September 07, 2016LUMBAR PUNCTURE PROCEDURE : 1. Fluoroscopic guided lumbar puncture. The risks, benefits and alternatives to the procedure were explained and verbal and written consent w as obtained. The site was prepped in sterile fashion. Full sterile technique was used, including ca p, mask, sterile gloves and gown and a large sterile sheet. Hand hygiene and 2% chlorhexidine and/or betadine/alcohol prep was utilized per protocol for cutaneous antisepsis. The skin and subcutaneous tissues were infiltrated with local anesthetic solution. With fluoroscopic guidance the lumbar thecal sac was punctured at the level above. The fluid describ ed above was removed without difficulty. The patient tolerated the procedure well and there were no complications. CONCLUSION: Uncomplicated fluoroscopically guided lumbar puncture. Juan Henry MD on September 07, 2016 at 15:31 Board Certified Radiologist. This report was verified electronically.
--- NOTE | 2016-09-07 15:44 | HHI.DS ---
Discharge Summary Admission Date Sep 04, 2016 at 20:30 Discharge Date: September 07, 2016 Admitting Diagnosis Bilateral Lower Extremity Weakness, Inability to Ambulate (1) Inability to walk ICD Code: R26.2 (2) Bilateral leg weakness ICD Code: R29.898 Diagnosis: Principal Procedures Lumbar Puncture Brief History - From Admission This is a 61-year-old male patient who denies neck and medical history. Patient presents to the emergency department today after he fell backwards shortness it on a bedside commode. Patient reports progressive bilateral lower extremity weakness times one year. The patient states that in April 2015 he fell while at work carrying a box onto his bottom and had lower back pain at that time but was not seen or evaluated. States that 2 months later in June 2015 he was pulled down a ramp by a large package cart at work and injured his lower back. States that he was seen at a hospital in [place] at the time of that injury and had CT scans of his lower spine that were unremarkable. States he was referred to a specialist and was told he needed an MRI and a "neuromuscular test" however then he lost his insurance and never had these tests performed. States that over the past year he has had progressive weakness in his lower extremities. States that he used a cane for several months, then had to use 2 canes for another 3 months and then the last 3 months he has been using a walker for ambulation. States that today he was completely unable to lift himself off of the toilet at home due to weakness in his legs which is why he is presenting to our emergency department today, states his significant other had to carry him here. States that he waited to come to the hospital because he has been uninsured and did not want to get a large medical bill but he recently became insured. He denies any numbness or tingling, saddles anesthesia, fever, chills, nausea, vomiting. States that when he has the urge to urinate or have a bowel movement he has to go to the bathroom quickly or he will have an accident but denies bladder or stool incontinence. He has also had swelling in his lower legs for the last year as well. CBC/BMP: 09/05/16 0800 09/05/16 0800 Significant Findings Laboratory Tests Test 09/05/16 08:00 White Blood Count 3.3 TH/MM3 (4.0-11.0) Red Blood Count 4.28 MIL/MM3 (4.50-5.90) Platelet Count 137 TH/MM3 (150-450) Monocytes (%) (Auto) 11.2 % (0.0-8.0) Eosinophils (%) (Auto) 4.6 % (0.0-4.0) Neutrophils # (Auto) 1.7 TH/MM3 (1.8-7.7) Potassium Level 3.4 MEQ/L (3.5-5.1) Creatinine 0.49 MG/DL (0.60-1.30) Imaging Last Impressions Chest Magnetic Resonance Angiograph 09/07/16 0000 Signed Impressions: Service Date/Time: Wednesday, September 07, 2016 09:17 - CONCLUSION: 1. Aorta is normal in caliber and course.. Limited evaluation of the spinal arteries. Consideration could be made to CTA which is less sensitive to motion artifact. Isaias Torres Jr., MD Abdomen Magnetic Resonance Angio 09/07/16 0000 Signed Impressions: Service Date/Time: Wednesday, September 07, 2016 09:17 - CONCLUSION: Atherosclerotic plaque generat mild luminal narrowing of the SMA. Remaining mesenteric arteries are patent. Very limited evaluation of the spinal arteries. CTA could be considered which is less sensitive to motion artifact. Isaias Torres Jr., MD Thoracic Spine MRI 09/04/16 0000 Signed Impressions: Service Date/Time: Sunday, September 04, 2016 18:08 - CONCLUSION: Slight asymmetrical buldging disc left T9-T10 slightly impinging the exiting nerve roots without any significant thecal sac stenosis. Uriel Brower MD Lumbar Spine MRI 09/04/16 0000 Signed Impressions: Service Date/Time: Sunday, September 04, 2016 18:08 - CONCLUSION: Degenerative changes and slight bulging discs as above without any significant thecal sac stenosis. Uriel Brower MD Lower Extremity Ultrasound 09/04/16 Signed Impressions: Service Date/Time: Sunday, September 04, 2016 19:50 - CONCLUSION: Normal examination. Uriel Brower MD Cervical Spine MRI 09/04/16 0000 Signed Impressions: Service Date/Time: Sunday, September 04, 2016 18:08 - CONCLUSION: Slight neural foramina compromise left C4-5 and left C5-6 without any significant thecal sac stenosis. Uriel Brower MD Brain MRI 09/04/16 0000 Signed Impressions: Service Date/Time: Sunday, September 04, 2016 18:08 - CONCLUSION: Slight small vessel ischemic changes without any evidence for acute hemorrhage or mass effect. Uriel Brower MD PE at Discharge GENERAL: NAD, A&Ox3 SKIN: Warm and dry. HEAD: Normocephalic. EYES: No scleral icterus. No injection or drainage. NECK: Supple, trachea midline. No JVD or lymphadenopathy. CARDIOVASCULAR: Regular rate and rhythm without murmurs, gallops, or rubs. RESPIRATORY: Breath sounds equal bilaterally. No accessory muscle use. GASTROINTESTINAL: Abdomen soft, non-tender, nondistended. MUSCULOSKELETAL: No cyanosis, or edema. NEURO: Bilateral leg weakness to near flaccidity (strength 1/5) with preserved plantarflexion, involving muscles upto the girdle. Sensation intact. Hospital Course Mr. Denny is a 61 year old male. He came in with more difficulty standing regarding severe bilateral lower extremity weakness. Symptoms have been present for almost 1.5 years and were preceded by two back injuries, spaced apart by two months in April 2015 and June 2015. Work up has not revealed a specific etiology. Lumbar puncture is obtained today and as this is not infectious, patient was cleared by neurology for discharge and out patient follow up and neurology clinic to discuss results which are not going to be present today. He will be discharged with PT and assistance devices for ambulation. Medically stable and clear for discharge to home today. Pt Condition on Discharge: Stable Discharge Disposition: Discharge Home Discharge Time: <= 30 minutes Discharge Instructions DIET: Follow Instructions for: As Tolerated, No Restrictions Activities you can perform: See Additionl Instruction Other Activity Instructions: Caution with activities which could result in injury to yourself or others. Follow up Referrals: Neurology - 1 Week with Mina Alicia MD PCP Follow-up - 1 Week Medication Profile: No Active Prescriptions or Reported Meds Juan Heller MD September 07, 2016 15:44
[2016-09-07] MEDS ORDERED: WALKER/ADULT/FO1 MIS (15:47)
[2016-09-07] MEDS ORDERED: ACE-52 TP (15:51)
[2016-09-07] MEDS ORDERED: MISC-163 (15:58)
[2016-09-07] MEDS ORDERED: WHEEMIS3 (15:59)
[2016-09-07 17:40] LABS: GROSS BLOOD TUBE #1 TRACE (0); GROSS BLOOD TUBE #2 0 (0); GROSS BLOOD TUBE #3 0 (0); SUPERNATE COLOR TUBE #1 CLEAR (CLEAR); SUPERNATE COLOR TUBE #2 CLEAR (CLEAR); SUPERNATE COLOR TUBE #3 CLEAR (CLEAR); SUPERNATE COLOR TUBE #4 CLEAR (CLEAR); VOLUME TUBE # 2 4.5 ML; VOLUME TUBE # 3 4.5 ML; VOLUME TUBE # 4 6.5 ML
[2016-09-07 17:41] LABS: CSF LYMPHOCYTES 93 %; CSF MONOCYTES 5 %; WBC TUBE #4 23 /MM3 (0-10)
[2016-09-07 17:45] LABS: CSF NEUTROPHILS 0 %; GROSS BLOOD TUBE #4 0 (0)
[2016-09-07 19:22] VITALS: BP 159/89; PULSE 69; RESP 18; TEMP 98.1; O2SAT 95
[2016-09-07] MEDS ORDERED: IOHEXOL 350 MG/ML 10 ML VIAL (for RAD DIAG) IV ONE (20:11)
--- NOTE | 2016-09-08 09:07 | RADRPT ---
EXAM DATE/TIME: 09/07/2016 18:31 [facility] COMPARISON: MRI THORACIC SPINE W & W/O CONTRAST, September 04, 2016, 18:08. INDICATIONS : Fell one year ago legs are getting weaker. IV CONTRAST: 70 cc Omnipaque 350 (iohexol) IV RADIATION DOSE: 8.29 CTDIvol (mGy) MEDICAL HISTORY : Hypertension. SURGICAL HISTORY : None. ENCOUNTER: Initial ACUITY: 1 yr PAIN SCALE: 4/10 LOCATION: Lumbar TECHNIQUE: Volumetric scanning was performed using a multi-row detector CT scanner. The data was post processed with a variety of visualization algorithms including full volume maximum intensity projection, multi -planar sliding thin slab reformation, curved planar reformation, and surface rendering techniques. Using automated exposure control and adjustment of the mA and/or kV according to patient size, radiat ion dose was kept as low as reasonably achievable to obtain optimal diagnostic quality images. FINDINGS: AORTA/INFLOW: The visualized portions of the thoracoabdominal aorta are normal in caliber and course. No reversible change or stenosis. Mild scattered calcified plaque. Visualized portions of the inflow vessels are p atent. Multiple intercostal arteries opacify with contrast and are normal in appearance. The study wa s obtained to try and evaluate the spinal arteries. There is limited opacification of the spinal rd mari. Short intermittent segments of the anterior and posterior spinal arteries opacify with a contra st and appear grossly unremarkable. There are large areas that are not well opacified and therefore p oorly evaluated. OTHER STRUCTURES: A 3 mm left renal stone noted. CONCLUSION: 1. Limited visualization of the spinal arteries. No gross abnormality observed. 2. 3 mm nonobstructive left renal stone. Isaias Torres Jr., MD on September 08, 2016 at 8:56 Board Certified Radiologist. This report was verified electronically.
[2016-09-09 09:03] LABS: HSV 1,PCR Negative (Negative)
[2016-09-09 14:45] LABS: IGG CSF 2.7 mg/dL (<=8.1); IGG INDEX CSF 0.47 (<=0.85); IGG/ALBUMIN CSF 0.09 (<=0.21); IGG/ALBUMIN SERUM 0.19 (<=0.40); SYNTHESIS RATE CSF 0.09 mg/24 h (<=12)
[2016-09-09 17:56] LABS: LYME IGG IMMUNOBLOT CSF None Detected bands (None Detected); LYME IGM IMMUNOBLOT CSF None Detected bands (None Detected)
[2016-09-10 15:29] LABS: CSF CRYPTOCOCCUS AG CONF ND (NOT DETECTD)
[2016-09-10 19:53] LABS: VDRL CSF NON-REACTIVE (())
[2016-09-11 03:49] LABS: VZV PCR RESULT <500 (())
[2016-09-12 11:53] LABS: B. BURGDORFERI DNA PCR CSF NOT DETECTED (())
== END 2016-09-07 20:12 | disposition home or self-care (01) ==
LOC: NEPD 16:37 → NEDA 20:30 → NEPGCP 21:51
PROVIDERS: ADMIT Hospitalist; ATTEND Hospitalist
DX: R53.1 Weakness (principal); R26.2 Difficulty in walking, not elsewhere classified; M54.5 Low back pain; R60.0 Localized edema; G83.9 Paralytic syndrome, unspecified; M62.50 Muscle wasting and atrophy, not elsewhere classified, unspecified site; R29.898 Other symptoms and signs involving the musculoskeletal system; M21.371 Foot drop, right foot; M21.372 Foot drop, left foot
CPT/HCPCS: 62270; 70553; 71275; 71555; 72156; 72157; 72158; 74174; 77003; 80048; 80053; 82040; 82042; 82784; 82945; 83873; 84157; 85025; 85610; 85730; 86403; 86592; 86618; 86790; 87529; 87799; 87801; 89051; 93970; 97163; 97166; 99285; A9579; C8900; G0378; G8987; G8988; J1650; J7030; Q9967; C8909

== ENCOUNTER 2017-10-10 00:27 | Inpatient (IN) | payer MEDICARE, OTHER ==
[~2017-10-10] VITALS: Ht 188 cm; Wt 80.7 kg
[~2017-10-10 00:27] MED LIST: ACE-52 TP; MISC-163; WALKER/ADULT/FO1 MIS; WHEEMIS3
[2017-10-10 00:43] VITALS: BP 139/89; PULSE 102; RESP 20; TEMP 98.6; O2SAT 95
[2017-10-10 01:14] LABS: BILIRUBIN, URINE NEG (NEG); BLOOD, URINE NEG (NEG); GLUCOSE,URINE NEG (NEG); KETONE, URINE NEG (NEG); NITRITE,URINE NEG (NEG); URINE COLOR LIGHT-YELLOW (YELLW/STRAW); URINE LEUKOCYTE ESTERASE NEG (NEG)
[2017-10-10 01:16] LABS: AUTOMATED NEUTROPHIL # 4.6 TH/MM3 (1.8-7.7); BASOPHIL % 0.5 % (0.0-2.0); EOSINOPHIL # 0.5 TH/MM3 (0-0.4); HEMOGLOBIN 16.7 GM/DL (13.0-17.0); LYMPH % 20.3 % (9.0-44.0); LYMPHOCYTE # 1.4 TH/MM3 (1.0-4.8); MEAN CELL VOLUME 94.6 FL (80.0-100.0); MEAN CORPUSCULAR HEMOGLOBIN 33.6 PG (27.0-34.0); MEAN CORPUSCULAR HGB CONC 35.5 % (32.0-36.0); MEAN PLATELET VOLUME 8.8 FL (7.0-11.0); MONO % 6.8 % (0.0-8.0); MONOCYTE # 0.5 TH/MM3 (0-0.9); NEUT % 65.4 % (16.0-70.0); PLATELET COUNT 158 TH/MM3 (150-450); RED BLOOD COUNT 4.97 MIL/MM3 (4.50-5.90); RED CELL DISTRIBUTION WIDTH 13.5 % (11.6-17.2); WHITE BLOOD COUNT 7.1 TH/MM3 (4.0-11.0)
[2017-10-10 01:31] LABS: ALBUMIN 4.1 GM/DL (3.4-5.0); ALT (GPT) 37 U/L (12-78); AST (GOT) 18 U/L (15-37); BLOOD UREA NITROGEN 11 MG/DL (7-18); CHLORIDE 105 MEQ/L (98-107); CREATININE 0.33 MG/DL (0.60-1.30); GLOMERULAR FILTRATION RATE 273 ML/MIN (>89); GLUCOSE,RANDOM 107 MG/DL (74-106); SODIUM (NA) 142 MEQ/L (136-145)
[2017-10-10 01:34] LABS: ALKALINE PHOSPHATASE 109 U/L (45-117); TOTAL BILIRUBIN ADULT 0.7 MG/DL (0.2-1.0); TOTAL PROTEIN 7.7 GM/DL (6.4-8.2)
[2017-10-10] MEDS ORDERED: SODIUM CHLOR 0.9% 1000 ML INJ 1,000 ML IV SCH (03:14)
--- NOTE | 2017-10-10 03:18 | PD ---
HPI Chief Complaint: Psychiatric Symptoms Time Seen by Provider: 03:08 Travel History International Travel<30 days: No Contact w/Intl Traveler<30days: No Traveled to known affect area: No History of Present Illness HPI 62-year-old male presents under [place] act initiated by the [employer]. According to his paperwork patient attempted to hang himself with a shoestring today because he is mad at the world and does not want to live. The patient has a history of paraplegia. He reports that today he felt like he reached a "breaking point" in regards to arguments that he has been having with his , feeling upset that his extended family is taking advantage of him. Because of this he reports that he did make a vague attempted self-harm but it was not with actual intent to harm self. Symptoms are moderate, aggravated by social stressors, no alleviating factors. He endorses daily. Use. Denies any illicit drug use. Currently denying any suicidal homicidal ideation. No other complaints. PFSH Past Medical History Anxiety: No Depression: No Heart Rhythm Problems: No Cancer: No Cardiovascular Problems: No High Cholesterol: No Chest Pain: No Congestive Heart Failure: No Diabetes: No Diminished Hearing: No Endocrine: No Genitourinary: No Hypertension: Yes Immune Disorder: No Musculoskeletal: No Neurologic: Yes (GUILLAIN BARRE SYNDROME) Psychiatric: No Reproductive: No Respiratory: No Thyroid Disease: No Past Surgical History Surgical History: No Previous Surgery Other Surgery: No Social History Alcohol Use: Yes (A FEW BEERS DAILY) Tobacco Use: No Substance Use: No Allergies-Medications (Allergen,Severity, Reaction): Coded Allergies: No Known Allergies (Unverified Adverse Reaction, Unknown, 10/10/17) Reported Meds & Prescriptions Reported Meds & Active Scripts Active Wheelchair (Device) 1 Mis Mis 1 Ea .ROUTE DIRECTED 3-in-1 Bedside Toilet (Device) 1 Mis Mis 1 Ea .ROUTE DIRECTED EFRA Ankle Brace (Elastic Bandages & Supports) 1 Mis Mis Applic TP DAILY Walker/Adult/Folding (Device) 1 Mis Mis 1 Ea .ROUTE DIRECTED Review of Systems Except as stated in HPI: all other systems reviewed are Neg Physical Exam Narrative GENERAL: Well-developed well-nourished male in no acute distress SKIN: Warm and dry. HEAD: Atraumatic. Normocephalic. EYES: Pupils equal and round. No scleral icterus. No injection or drainage. ENT: No nasal bleeding or discharge. Mucous membranes pink and moist. NECK: Trachea midline. No JVD. CARDIOVASCULAR: Regular rate and rhythm. No murmur appreciated. RESPIRATORY: No accessory muscle use. Clear to auscultation. Breath sounds equal bilaterally. GASTROINTESTINAL: Abdomen soft, non-tender, nondistended. Hepatic and splenic margins not palpable. MUSCULOSKELETAL: Lower extremity flaccid paralysis noted. NEUROLOGICAL: Awake and alert. No obvious cranial nerve deficits. Motor grossly within normal limits. Normal speech. PSYCHIATRIC: Appropriate mood and affect; insight and judgment normal. Data Data Last Documented VS Vital Signs Date Time Temp Pulse Resp B/P (MAP) Pulse Ox O2 Delivery O2 Flow Rate FiO2 10/10/17 00:43 98.6 102 20 139/89 (106) 95 Orders Orders Complete Blood Count With Diff (10/10/17 00:51) Comprehensive Metabolic Panel (10/10/17 00:51) Urinalysis - C+S If Indicated (10/10/17 00:51) Psych Screen (10/10/17 00:51) Drug Screen, Random Urine (10/10/17 00:51) Alcohol (Ethanol) (10/10/17 00:44) Lactic Acid (10/10/17 03:14) Sodium Chlor 0.9% 1000 Ml Inj (Ns 1000 M (10/10/17 03:14) Salicylates (Aspirin) (10/10/17 03:14) Tylenol (Acetaminophen) (10/10/17 03:14) Labs Laboratory Tests Test 10/10/17 00:34 10/10/17 00:44 10/10/17 03:30 Urine Color LIGHT-YELLOW Urine Turbidity CLEAR Urine pH 5.0 Urine Specific [place] 1.003 Urine Protein NEG mg/dL Urine Glucose (UA) NEG mg/dL Urine Ketones NEG mg/dL Urine Occult Blood NEG Urine Nitrite NEG Urine Bilirubin NEG Urine Urobilinogen LESS THAN 2.0 MG/DL Urine Leukocyte Esterase NEG Microscopic Urinalysis Comment CULT NOT INDICATED Urine Opiates Screen NEG Urine Barbiturates Screen NEG Urine Amphetamines Screen NEG Urine Benzodiazepines Screen NEG Urine Cocaine Screen NEG Urine Cannabinoids Screen NEG White Blood Count 7.1 TH/MM3 Red Blood Count 4.97 MIL/MM3 Hemoglobin 16.7 GM/DL Hematocrit 47.0 % Mean Corpuscular Volume 94.6 FL Mean Corpuscular Hemoglobin 33.6 PG Mean Corpuscular Hemoglobin Concent 35.5 % Red Cell Distribution Width 13.5 % Platelet Count 158 TH/MM3 Mean Platelet Volume 8.8 FL Neutrophils (%) (Auto) 65.4 % Lymphocytes (%) (Auto) 20.3 % Monocytes (%) (Auto) 6.8 % Eosinophils (%) (Auto) 7.0 % Basophils (%) (Auto) 0.5 % Neutrophils # (Auto) 4.6 TH/MM3 Lymphocytes # (Auto) 1.4 TH/MM3 Monocytes # (Auto) 0.5 TH/MM3 Eosinophils # (Auto) 0.5 TH/MM3 Basophils # (Auto) 0.0 TH/MM3 CBC Comment DIFF FINAL Differential Comment Blood Urea Nitrogen 11 MG/DL Creatinine 0.33 MG/DL Random Glucose 107 MG/DL Total Protein 7.7 GM/DL Albumin 4.1 GM/DL Calcium Level 9.0 MG/DL Alkaline Phosphatase 109 U/L Aspartate Amino Transf (AST/SGOT) 18 U/L Alanine Aminotransferase (ALT/SGPT) 37 U/L Total Bilirubin 0.7 MG/DL Sodium Level 142 MEQ/L Potassium Level 3.8 MEQ/L Chloride Level 105 MEQ/L Carbon Dioxide Level 20.0 MEQ/L Anion Gap 17 MEQ/L Estimat Glomerular Filtration Rate 273 ML/MIN Ethyl Alcohol Level 188 MG/DL Lactic Acid Level 2.3 mmol/L Salicylates Level LESS THAN 1.7 MG/DL Acetaminophen Level LESS THAN 2.0 MCG/ML MDM Medical Decision Making Medical Screen Exam Complete: Yes Emergency Medical Condition: Yes Medical Record Reviewed: Yes Differential Diagnosis Adjustment reaction, substance-induced mood disorder, acute psychosis, major depressive disorder Narrative Course 62-year-old male presents under [employer] act for psychiatric evaluation. Mental health screening discussed with the patient. Psychiatric screen ordered. Anion gap is slightly elevated, Alcohol level 188. Lactic acid, Tylenol and salicylate levels have been added on. The patient will be given IV fluids. Lactic acid is 2.3. Tylenol and salicylates are negative. The patient is medically cleared for psychiatric disposition. Diagnosis Primary Impression: Medical clearance for psychiatric admission Patrick Franks Oct 10, 2017 03:18
[2017-10-10 06:31] VITALS: BP 160/84; PULSE 91; RESP 18; O2SAT 97
[2017-10-10 15:56] VITALS: BP 176/85; PULSE 85; RESP 16; O2SAT 98
--- NOTE | 2017-10-10 16:43 | PD ---
History of Present Illness Chief Complaint: Psychiatric Symptoms Time Seen by Provider: 15:45 Travel History International Travel<30 Days: No Contact w/Intl Traveler<30days: No Known affected area: No Legal Status Legal Status: Zayas Act Zayas Act Signed By: Bartholomew CoDirk [facility] Zayas Act Comment: 2017 @ 235 History of Present Illness: History of Present Illness HPI 62-year-old, , male,, with no reported psychiatric history who presents under Zayas act initiated by the [facility]'s office. According to his paperwork" patient attempted to hang himself with a shoestring today because he is mad at the world and does not want to live" . ED documentation is reviewed and partly included as part of this evaluation. " He reports that today he felt like he reached a "breaking point" in regards to arguments that he has been having with his , feeling upset that his extended family is taking advantage of him. Because of this he reports that he did make a vague attempt at self-harm but it was not with actual intent to harm self." EMR is reviewed. No previous contact with [facility] psychiatry department. Blood alcohol level on arrival is 188. Negative toxicology screen. Patient is seen in Main ED. He is clinically sober. No signs of alcohol withdrawal. The patient is calm and cooperative, dressed in T-shirt and shorts as he refused to change into hospital attire. He presents the following account of the incident leading up to the Zayas act. I will started drinking yesterday," I had several beers. To be honest, I do not remember what happened. My said I put a shoestring around my neck." The patient goes on to deny any depression. He denies any suicidal or homicidal ideation, intent or plan. He states " I have to much to live for including my my grandkids and my dogs". He denies that he drinks on a daily basis or that he has ever had any problems with alcohol use. when I ask him if he owns any weapons or guns he adamantly denies and goes on to tell me that he does not believe in owning any weapons. He acknowledges that he feels frustrated with his current living situation including having his son living with them. He also talks about his daughter being and not having a job. Other stressors include his medical problems and his inability to care for himself as he is paraplegic. I contacted his Laina at [phone] after patient gave verbal consent. The presents numerous concerns regarding the patient's safety including that she found him unconscious with a rope and not a shoestring around his neck. She offers to send the video that her daughter took of the incident. She also states that he has been recently threatening to commit suicide, that he has pointed a gun to his head and has pointed a gun towards her. She states that the patient owns a gun and it is in the home. also reports that he drinks on a daily basis. She states that if he is discharge she will leave the home because she is afraid of her safety and the safety of the family and the home. I confronted the patient on the conflicting information I received from the as it pertains to him having a gun as well as it pertains to his drinking. He makes light of the subject and states you asked me if I own GUNS . I do not own guns I have a gun. He also states you asked me if I was an alcoholic and I said no. I did not ask the patient if he was an alcoholic but rather asked him if he drank alcohol which she denied. Case is discussed with on-call psychiatrist Dr. Joss Steinberg. In view of the conflicting information and in view of the 's concerns for the patient's safety the patient will remain under a Zayas act and will be admitted to psychiatry for further evaluation. PFSH Past Medical History Anxiety: No Depression: No Heart Rhythm Problems: No Cancer: No Cardiovascular Problems: No High Cholesterol: No Chest Pain: No Congestive Heart Failure: No Diabetes: No Diminished Hearing: No Endocrine: No Genitourinary: No Hypertension: Yes Immune Disorder: No Musculoskeletal: No Neurologic: Yes (GUILLAIN BARRE SYNDROME) Psychiatric: No Reproductive: No Respiratory: No Thyroid Disease: No Past Surgical History Surgical History: No Previous Surgery Other Surgery: No Psychiatric History Psychiatric History Hx Psychiatric Treatment: DENIES any previous History of Inpatient Treatment: No Guns or firearms in home: Yes (Patient owns a handgun which is in the home) Social History Born in [place]. 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 He worked for the [employer] for 30 years. He then worked for the [employer]. He is disabled due to progressive weakness of his lower extremities. He is for the past 31 years and lives with his and his 40-year-old son. Hx Alcohol Use: Yes (A FEW BEERS DAILY) Hx Tobacco Use: No Hx Substance Use: No Substance Use Type: Alcohol (Patient denies that he drinks daily but reports he drinks beer every day.) Hx of Substance Use Treatment: No Allergies-Medications (Allergen,Severity, Reaction): Coded Allergies: No Known Allergies (Unverified Adverse Reaction, Unknown, 10/10/17) Reported Meds & Prescriptions Reported Meds & Active Scripts Active No Active Prescriptions or Reported Medications Review of Systems Psychiatric: DENIES: Anxiety, Confusion, Mood changes, Depression, Hallucinations, Agitation, Suicidal Ideation, Homicidal Ideation, Delusions Mental Status Examination Appearance: Appropriate (Dressed in shorts and T-shirt) Consciousness: Alert Orientation: x4 Motor Activity: Other (Paraplegic) Speech: Unremarkable Language: Adequate Fund of Knowledge: Adequate Attention and Concentration: Adequate Memory: Unremarkable Mood: Appropriate Affect: Appropriate Thought Process & Associations: Intact, Logical, Goal directed Thought Content: Appropriate Hallucination Type: None Delusion Type: None Suicidal Ideation: No Suicidal Plan: No Suicidal Intention: No Homicidal Ideation: No Homicidal Plan: No Homicidal Intention: No Insight: Fair Judgment: Impulsive MDM Medical Decision Making Medical Record Reviewed: Yes Assessment/Plan 62-year-old, , male,, with no reported psychiatric history who presents under Zayas act initiated by the [facility] [employer]. According to his paperwork" patient attempted to hang himself with a shoestring today because he is mad at the world and does not want to live" patient was found with blood alcohol level of 188 on arrival to the ED. He was monitored in Main ED and presented no suicidality. Patient was evaluated and denied any suicidality, he denied owning any guns, he denies that he drank alcohol on a daily basis. He was advocating to be discharged from the ED. was contacted for collateral information. The reports that the patient does own a gun and that he drinks on a daily basis. She also reports that he has threatened to commit suicide recently. She also reports that he attempted to hang himself with a rope and she found him unconscious. She verbalized concerns for the patient's safety as well as for the family safety. After consultation with on-call psychiatrist, Dr. Steinberg, it was determined that patient will be admitted to inpatient psychiatry for further evaluation. Orders Orders Complete Blood Count With Diff (10/10/17 00:51) Comprehensive Metabolic Panel (10/10/17 00:51) Urinalysis - C+S If Indicated (10/10/17 00:51) Psych Screen (10/10/17 00:51) Drug Screen, Random Urine (10/10/17 00:51) Alcohol (Ethanol) (10/10/17 00:44) Lactic Acid (10/10/17 03:14) Sodium Chlor 0.9% 1000 Ml Inj (Ns 1000 M (10/10/17 03:14) Salicylates (Aspirin) (10/10/17 03:14) Tylenol (Acetaminophen) (10/10/17 03:14) Diet Regular Basic (10/10/17 Breakfast) Diet Regular Basic (10/10/17 Dinner) Diet Regular Basic (10/10/17 Lunch) Results Vital Signs Date Time Temp Pulse Resp B/P (MAP) Pulse Ox O2 Delivery O2 Flow Rate FiO2 10/10/17 15:56 85 16 176/85 (115) 98 Room Air 10/10/17 06:31 91 18 160/84 (109) 97 Room Air 10/10/17 00:43 98.6 102 20 139/89 (106) 95 Laboratory Tests Test 10/10/17 00:34 10/10/17 00:44 10/10/17 03:30 Urine Color LIGHT-YELLOW Urine Turbidity CLEAR Urine pH 5.0 Urine Specific [place] 1.003 Urine Protein NEG Urine Glucose (UA) NEG Urine Ketones NEG Urine Occult Blood NEG Urine Nitrite NEG Urine Bilirubin NEG Urine Urobilinogen LESS THAN 2.0 Urine Leukocyte Esterase NEG Microscopic Urinalysis Comment CULT NOT INDICATED Urine Opiates Screen NEG Urine Barbiturates Screen NEG Urine Amphetamines Screen NEG Urine Benzodiazepines Screen NEG Urine Cocaine Screen NEG Urine Cannabinoids Screen NEG White Blood Count 7.1 Red Blood Count 4.97 Hemoglobin 16.7 Hematocrit 47.0 Mean Corpuscular Volume 94.6 Mean Corpuscular Hemoglobin 33.6 Mean Corpuscular Hemoglobin Concent 35.5 Red Cell Distribution Width 13.5 Platelet Count 158 Mean Platelet Volume 8.8 Neutrophils (%) (Auto) 65.4 Lymphocytes (%) (Auto) 20.3 Monocytes (%) (Auto) 6.8 Eosinophils (%) (Auto) 7.0 Basophils (%) (Auto) 0.5 Neutrophils # (Auto) 4.6 Lymphocytes # (Auto) 1.4 Monocytes # (Auto) 0.5 Eosinophils # (Auto) 0.5 Basophils # (Auto) 0.0 CBC Comment DIFF FINAL Differential Comment Blood Urea Nitrogen 11 Creatinine 0.33 Random Glucose 107 Total Protein 7.7 Albumin 4.1 Calcium Level 9.0 Alkaline Phosphatase 109 Aspartate Amino Transf (AST/SGOT) 18 Alanine Aminotransferase (ALT/SGPT) 37 Total Bilirubin 0.7 Sodium Level 142 Potassium Level 3.8 Chloride Level 105 Carbon Dioxide Level 20.0 Anion Gap 17 Estimat Glomerular Filtration Rate 273 Ethyl Alcohol Level 188 Lactic Acid Level 2.3 Salicylates Level LESS THAN 1.7 Acetaminophen Level LESS THAN 2.0 Diagnosis Primary Impression: Medical clearance for psychiatric admission Additional Impressions: Adjustment disorder Alcohol abuse Admitting Information Admitting Physician Requests: Admit Prescriptions No Active Prescriptions or Reported Meds Problem Qualifiers Additional Impressions: Adjustment disorder Qualified Codes: F43.20 - Adjustment disorder, unspecified Marleen Chester [facility] Oct 10, 2017 16:43
[2017-10-10] MEDS ORDERED: cloNIDine HCL 0.1 MG TAB PO ONE (16:45)
[2017-10-10] MEDS ORDERED: ACETAMINOPHEN 325 MG TAB PO PRN (18:00)
[2017-10-10] MEDS ORDERED: ALUMINUM/MAGNESIUM/SIMETH 30 ML CUP PO PRN (18:00)
[2017-10-10] MEDS ORDERED: MAGNESIUM HYDROXIDE SUSP 30 ML CUP PO PRN (18:00)
[2017-10-10 18:09] VITALS: BP 158/88; PULSE 80; RESP 14; O2SAT 98
[2017-10-10 18:50] VITALS: BP 173/94; PULSE 111; RESP 16; TEMP 98.3; O2SAT 98
[2017-10-11 05:54] VITALS: BP 159/97; PULSE 89; RESP 17; TEMP 97.8; O2SAT 97
[2017-10-11 08:16] LABS: BICARBONATE 26.2 MEQ/L (21.0-32.0); BLOOD UREA NITROGEN 14 MG/DL (7-18); CALCIUM 9.3 MG/DL (8.5-10.1); CHLORIDE 105 MEQ/L (98-107); CREATININE 0.32 MG/DL (0.60-1.30); GLOMERULAR FILTRATION RATE 283 ML/MIN (>89); GLUCOSE,RANDOM 83 MG/DL (74-106); SODIUM (NA) 141 MEQ/L (136-145)
[2017-10-11 08:18] LABS: CHOLESTEROL 148 MG/DL (120-200); TRIGLYCERIDES 75 MG/DL (42-150)
[2017-10-11 08:19] LABS: CHOLESTEROL/ HDL RATIO 1.97 RATIO; HDL CHOLESTEROL 74.8 MG/DL (40.0-60.0); LDL CHOLESTEROL 58 MG/DL (0-99)
--- NOTE | 2017-10-11 11:46 | HHI.HP ---
Provisional Diagnosis Admission Date Oct 10, 2017 at 17:15 [place]. Adjustment disorder with depressed mood, alcohol abuse with intoxication Certification of Person's Competence To Provide Express and Informed Consent I have personally examined Julio Denny , a person being served at [facility] on, Oct 11, 2017 11:31. Express and informed consent means consent voluntarily given in writing, by a competent person, after sufficient explanation and disclosure of the subject matter involved to enable the person to make a knowing and willful decision without any element of force, fraud, deceit, duress, or other form of constraint or coercion. This person is 18 years of age or older, is not now known to be incompetent to consent to treatment with a guardian advocate, and does not have a health care surrogate or proxy currently making medical treatment decisions. I have found this person to be one of the following: []xxx Competent to provide express and informed consent, as defined above, for voluntary admission to this facility and is competent to provide express and informed consent for treatment. He/she has the consistent capacity to make well reasoned, willful, and knowing decisions concerning his or her medical or mental health treatment. The person fully and consistently understands the purpose of the admission for examination/placement and is fully capable of personally exercising all rights assured under [place] Incompetent to provide express and informed consent to voluntary admission, and this is incompetent to provide express and informed consent to treatment. The person must be transferred to involuntary status and a petition for a guardian advocate filed with the Circuit Court. [] Refusing to provide express and informed consent to voluntary admission but is competent to provide express and informed consent for treatment. The person must be discharged or transferred to involuntary status. Form shall be completed within 24 hours of a person's arrival at the receiving facility and filed in the clinical record of each person: 1. Admitted on a voluntary basis 2. Permitted to provide express and informed consent to his/her own treatment 3. Allowed to transfer from involuntary to voluntary status 4. Prior to permitting a person to consent to his or her own treatment after having been previously found incompetent to consent to treatment. History of Present Illness Capacity: Has Capacity Psych Chief Complaint: Patient depressed the suicide gesture alcohol intoxication HPI Patient is a 62-year-old white male who comes for under a [facility] dated 10/09/2017 at 11:15 PM that document reviewed essentially stating Julio attempted to hang himself with a shoestring because she is mad at the world and does not want to live. Patient seen screen in the ED and toxicology negative blood alcohol level of 188. Patient admitted to 2600 unit. Patient was cleared in the ED. At the present time patient sitting quietly in his wheelchair in his room patient seen with nurse present throughout session. He is alert and oriented white male who is retired after developing a [id number]-[id number] symptoms leading to significant weakness in his lower extremities. 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 There is been stress in his life recently with his disabilities, financial issues of frustration with the change in his lifestyle. There is been some alcohol use. It appears he drinks every day with his in the afternoon 3-4+ years daily. Though he minimizes it. He denies other drug use. He minimizes the depression. He denies any prior psychiatric contact hospitalization her psychotropic medications. I did talk with patient's name is Laina at [phone] she verifies increasing depression. She states she is made vague suicidal statements in the past but never acted on them. She agrees with the fact that he drinks more than he was sharing with me. However she also feels that this was an impulsive gesture. She feels safe with him coming home. Even though she did find him unconscious in his bedroom with the cord wrapped around his neck. Patient himself is able contract to do no harm. His verifies the fact that she feels she is safe to come home. We did discuss this. I do feel he does have a significant depression developing that would benefit from medication I will order Zoloft 25 mg daily for this gentleman. He is a who we will have him follow-up through the [facility] in [facility]. I recommended absolute sobriety follow up with AA meetings also. I also counseled him return to our ED to speak with the psychiatric screener at these thoughts she develop again thus at the present time if the patient does not meet Zayas criteria will lift the Zayas act long to be discharged to his with Rx as mentioned [facility]. Patient does deny any prior physical and/or sexual trauma or abuse, denies any family history of mental illness. Review of Systems Constitutional: DENIES: Diaphoretic episodes, Fatigue, Fever, Weight gain, Weight loss, Chills, Dizziness, Change in appetite, Night Sweats Endocrine: DENIES: Heat/cold intolerance, Polydipsia, Polyuria, Polyphagia Eyes: DENIES: Blurred vision, Diplopia, Eye inflammation, Eye pain, Vision loss , Photosensitivity, Double Vision Ears, nose, mouth, throat: DENIES: Tinnitus, Hearing loss, Vertigo, Nasal discharge, Oral lesions, Throat pain, Hoarseness, Ear Pain, Running Nose, Epistaxis, Sinus Pain, Toothache, Odynophagia Respiratory: DENIES: Apneas, Cough, Snoring, Wheezing, Hemoptysis, Sputum production, Shortness of breath Cardiovascular: DENIES: Chest pain, Palpitations, Syncope, Dyspnea on Exertion , PND, Lower Extremity Edema, Orthopnea, Claudication Gastrointestinal: DENIES: Abdominal pain, Black stools, Bloody stools, Constipation, Diarrhea, Nausea, Vomiting, Difficulty Swallowing, Anorexia Genitourinary: DENIES: Sexual dysfunction, Urinary frequency, Urinary incontinence, Urgency, Hematuria, Dysuria, Nocturia, Penile Discharge, Testicular Pain, Testicular Swelling Musculoskeletal: DENIES: Joint pain, Muscle aches, Stiffness, Joint Swelling, Back pain, Neck pain Integumentary: DENIES: Abnormal pigmentation, Nail changes, Pruritus, Rash Hematologic/lymphatic: DENIES: Bruising, Lymphadenopathy Immunologic/allergic: DENIES: Eczema, Urticaria Neurologic: COMPLAINS OF: Localized weakness (Vague Tvjclxdo-Axjh-jmdk problems) Psychiatric: COMPLAINS OF: Depression Past Psych History Psychological trauma history Patient denies Violence risk - others (6 mos) Low Violence risk - self (6 mos) Low to moderate Substance Abuse History Drugs/Alcohol past 12 months Patient daily alcohol user Past Family Social History Coded Allergies: No Known Allergies (Unverified Allergy, Unknown, 10/10/17) Discontinued Scripts Wheelchair (Wheelchair) 1 Mis Mis, 1 EA .ROUTE DIRECTED for Weakness, #1 EA 0 Refills Prov:Juan Heller MD 09/07/16 3-in-1 Bedside Toilet (3-in-1 Bedside Toilet) 1 Mis Mis, 1 EA .ROUTE DIRECTED for Weakness, #1 EA Prov:Juan Heller MD 09/07/16 Elastic Bandages & Supports (EFRA Ankle Brace) 1 Mis Mis, APPLIC TP DAILY for Foot Drop, #2 Prov:Juan Heller MD 09/07/16 Walker/Adult/Folding (Walker/Adult/Folding) 1 Mis Mis, 1 EA .ROUTE DIRECTED for Weakness, #1 EA 0 Refills Prov:Juan Heller MD 09/07/16 Current Medications Medications (Trade) Dose Ordered Sig/Mane Route Start Time Stop Time Status Last Admin (Tylenol) 650 mg Q4H PRN PO 10/10/17 18:00 10/10/17 22:05 (Milk Of Magnesia Liq) 30 ml DAILY PRN PO 10/10/17 18:00 (Mag-Al Plus Susp Liq) 30 ml Q6H PRN PO 10/10/17 18:00 Family Psych History Patient denies Social History Patient has adult children Patient's Strengths (min. 2) Patient verbal able access healthcare, is cooperative Physical Exam Patient medically cleared ED exam reviewed and agreed with. Patient sitting in wheelchair due to sequelae of these issues he is in no acute distress, is in no respiratory distress, no complaints of chest pain no complaints of abdominal pain patient moving upper extremities without difficulty Vital Signs Vital Signs Date Time Temp Pulse Resp B/P (MAP) Pulse Ox O2 Delivery O2 Flow Rate FiO2 10/11/17 05:54 97.8 89 17 159/97 (117) 97 10/10/17 18:09 Room Air Lab Results Test 10/11/17 06:58 Blood Urea Nitrogen 14 MG/DL Creatinine 0.32 MG/DL Random Glucose 83 MG/DL Calcium Level 9.3 MG/DL Sodium Level 141 MEQ/L Potassium Level 3.8 MEQ/L Chloride Level 105 MEQ/L Carbon Dioxide Level 26.2 MEQ/L Anion Gap 10 MEQ/L Estimat Glomerular Filtration Rate 283 ML/MIN Triglycerides Level 75 MG/DL Cholesterol Level 148 MG/DL LDL Cholesterol 58 MG/DL HDL Cholesterol 74.8 MG/DL Cholesterol/HDL Ratio 1.97 RATIO Mental Status Examination Appearance: Appropriate (Dressed in shorts and T-shirt) Consciousness: Alert Orientation: x4 Motor Activity: Other (Paraplegic) Speech: Unremarkable Language: Adequate Fund of Knowledge: Adequate Attention and Concentration: Adequate Memory: Unremarkable Mood: Appropriate Affect: Appropriate Thought Process & Associations: Intact, Logical, Goal directed Thought Content: Appropriate Hallucination Type: None Delusion Type: None Suicidal Ideation: No Suicidal Plan: No Suicidal Intention: No Homicidal Ideation: No Homicidal Plan: No Homicidal Intention: No Insight: Fair Judgment: Impulsive Assessment & Plan Problem List: (1) Alcohol abuse with intoxication ICD Codes: F10.129 - Alcohol abuse with intoxication, unspecified (2) Adjustment disorder ICD Codes: F43.20 - Adjustment disorder, unspecified Status: Acute Assessment & Plan Estimated LOS: days at this time patient does not meet Zayas criteria will lift Zayas act. We did consult with patient's related to his discharge. She feels safe with him coming home. House is been made safe from firearms or weapons. Patient is able contract to do no harm. He will be started on Zoloft 25 mg daily, we will follow through the [facility] in town. Also absolute abstinence and referral to AA Discharge Planning Follow-up [facility] Request HC Surrog/Guard Advoc?: No Problem Qualifiers (1) Adjustment disorder: Qualified Codes: F43.21 - Adjustment disorder with depressed mood Daniel Winslow MD Oct 11, 2017 11:46
[2017-10-11] MEDS ORDERED: ZOLO25TA PO (11:47)
--- NOTE | 2017-10-11 11:51 | HHI.DS ---
Psychiatry Discharge Summary Inpatient Psychiatric care?: Yes Advance Directive: No Reason Not Provided: not interested at this time Mental Health AdvanceDirective: No Health Care Proxy: No Admission Admission Date Oct 10, 2017 at 17:15 Admission Diagnosis: (1) Alcohol abuse with intoxication ICD Code: F10.129 - Alcohol abuse with intoxication, unspecified (2) Adjustment disorder ICD Code: F43.20 - Adjustment disorder, unspecified Brief History Patient is a 62-year-old white male who comes for under a Zayas act by the [facility]'s office dated 10/09/2017 at 11:15 PM that document reviewed essentially stating Julio attempted to hang himself with a shoestring because she is mad at the world and does not want to live. Patient seen screen in the ED and toxicology negative blood alcohol level of 188. Patient admitted to 2600 unit. Patient was cleared in the ED. At the present time patient sitting quietly in his wheelchair in his room patient seen with nurse present throughout session. He is alert and oriented white male who is retired after developing a [id number] symptoms leading to significant weakness in his lower extremities. 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 There is been stress in his life recently with his disabilities, financial issues of frustration with the change in his lifestyle. There is been some alcohol use. It appears he drinks every day with his in the afternoon 3-4+ years daily. Though he minimizes it. He denies other drug use. He minimizes the depression. He denies any prior psychiatric contact hospitalization her psychotropic medications. I did talk with patient's name is Laina at [phone] she verifies increasing depression. She states she is made vague suicidal statements in the past but never acted on them. She agrees with the fact that he drinks more than he was sharing with me. However she also feels that this was an impulsive gesture. She feels safe with him coming home. Even though she did find him unconscious in his bedroom with the cord wrapped around his neck. Patient himself is able contract to do no harm. His verifies the fact that she feels she is safe to come home. We did discuss this. I do feel he does have a significant depression developing that would benefit from medication I will order Zoloft 25 mg daily for this gentleman. He is a who [facility] I recommended absolute sobriety follow up with AA meetings also. I also counseled him return to our ED to speak with the psychiatric screener at these thoughts she develop again thus at the present time if the patient does not meet Zayas criteria will lift the Zayas act long to be discharged to his with Rx as mentioned above [facility]. Patient does deny any prior physical and/or sexual trauma or abuse, denies any family history of mental illness. Tobacco Use In Past 30 Days: No Tobacco Past 30 Days Alcohol Use: 2-3 Times Per Week Hospital Course See above dictation under brief history. Patient does not meet Zayas criteria at this time patient to be discharged today to his . Rx times a month Zoloft 25 mg, [facility]. Patient able contract to do no harm. This is verified with patient's was willing to have him come home today. Also follow-up with AA Results Blood Pressure 159 / 97 Vital Signs Date Time Temp Pulse Resp B/P (MAP) Pulse Ox O2 Delivery O2 Flow Rate FiO2 10/11/17 05:54 97.8 89 17 159/97 (117) 97 10/10/17 18:09 Room Air Laboratory Tests Test 10/10/17 00:34 10/10/17 00:44 10/10/17 03:30 10/11/17 06:58 Eosinophils (%) (Auto) 7.0 % (0.0-4.0) Eosinophils # (Auto) 0.5 TH/MM3 (0-0.4) Creatinine 0.33 MG/DL (0.60-1.30) 0.32 MG/DL (0.60-1.30) Random Glucose 107 MG/DL (74-106) Carbon Dioxide Level 20.0 MEQ/L (21.0-32.0) Anion Gap 17 MEQ/L (5-15) Ethyl Alcohol Level 188 MG/DL (0-5) Lactic Acid Level 2.3 mmol/L (0.4-2.0) Salicylates Level LESS THAN 1.7 MG/DL Acetaminophen Level LESS THAN 2.0 MCG/ML HDL Cholesterol 74.8 MG/DL (40.0-60.0) Laboratory Results Test 10/11/17 06:58 Cholesterol Level 148 MG/DL (120-200) HDL Cholesterol 74.8 MG/DL (40.0-60.0) LDL Cholesterol 58 MG/DL (0-99) Triglycerides Level 75 MG/DL (42-150) Summary of Procedures None done Pending results at discharge: No Medications # of Antipsychotic meds at D/C: 0 Approp Antipsych med options 1 - Minimum of three failed multiple trials of monotherapy. 2 - Documented plan to taper to monotherapy due to previous use of multiple meds OR cross-taper in progress at D/C. 3 - Documentation of augmentation of Clozapine. 4 - Justification other than those listed in allowable values 1-3, document here : Discharge Discharge Date: Oct 11, 2017 Discharge Diagnosis: (1) Alcohol abuse with intoxication Diagnosis: Secondary ICD Code: F10.129 - Alcohol abuse with intoxication, unspecified (2) Medical clearance for psychiatric admission Diagnosis: Principal ICD Code: Z00.8 - Encounter for other general examination Status: Acute Pt Condition on Discharge: Stable Discharge Disposition: Discharge Home Discharge Instructions Diet Instructions: As Tolerated, No Restrictions Activities you can perform: Regular-No Restrictions Scheduled Appointment: [facility]up [place] [facility], also follow-up with AA Discharge Time > 30 minutes Mental Status Examination Appearance: Appropriate (Dressed in shorts and T-shirt) Consciousness: Alert Orientation: x4 Motor Activity: Other (Paraplegic) Speech: Unremarkable Language: Adequate Fund of Knowledge: Adequate Attention and Concentration: Adequate Memory: Unremarkable Mood: Appropriate Affect: Appropriate Thought Process & Associations: Intact, Logical, Goal directed Thought Content: Appropriate Hallucination Type: None Delusion Type: None Suicidal Ideation: No Suicidal Plan: No Suicidal Intention: No Homicidal Ideation: No Homicidal Plan: No Homicidal Intention: No Insight: Fair Judgment: Impulsive Discharge/Advance Care Plan Health Problems: (1) Alcohol abuse with intoxication (2) Adjustment disorder Goals to promote your health * To prevent worsening of your condition and complications * To maintain your health at the optimal level Directions to meet your goals Take your medications as prescribed Follow your dietary instruction Follow activity as directed Keep your appointments as scheduled Take your immunizations and boosters as scheduled If your symptoms worsen call your PCP, if no PCP go to Urgent Care Center or Emergency Room For 28/11 questions related to your inpatient stay or results of tests pending at discharge, please contact Dr. Daniel Winslow at Smoking is Dangerous to Your Health. Avoid second hand smoking Problem Qualifiers (1) Adjustment disorder: Qualified Codes: F43.21 - Adjustment disorder with depressed mood Daniel Winlsow MD Oct 11, 2017 11:50
[2017-10-11 16:53] LABS: HEMOGLOBIN A1C 4.4 % (4.3-6.0)
== END 2017-10-11 13:40 | disposition home or self-care (01) | DRG 897 ==
LOC: NEPD 00:27 → NEDA 17:15 → H260 18:41
PROVIDERS: ADMIT Psychiatry & Neurology Psychiatry; ATTEND Psychiatry & Neurology Psychiatry
DX: F10.129 Alcohol abuse with intoxication, unspecified (principal); G61.0 Guillain-Barre syndrome; G82.20 Paraplegia, unspecified; F43.21 Adjustment disorder with depressed mood; I10 Essential (primary) hypertension; Y90.6 Blood alcohol level of 120-199 mg/100 ml; Z59.9 Problem related to housing and economic circumstances, unspecified
CPT/HCPCS: 80048; 80053; 80061; 80307; 81001; 83036; 83605; 85025; J7030